=== PATIENT | male | born 1985 | race Caucasian/White ===

== ENCOUNTER 2018-01-12 18:45 | Observation (INO) | payer OTHER ==
--- NOTE | 2018-01-12 19:29 | ED ---
Chest Pain HPI - General Chief Complaint: Chest Pain Stated Complaint: Chest pain Time Seen by Provider: 01/12/18 19:00 Source: patient, RN notes reviewed Mode of arrival: ambulatory Limitations: no limitations - History of Present Illness Initial Comments: This is a 32-year-old male who presents today with complaints of left-sided chest pain a racing heart lightheadedness after he was chopping wood today. He states that sharp pain it was moderate in severity and went from his left chest down his left elbow. He did not pass out has no cough or shortness of breath at this time he does have a history of COPD and is still a smoker. He does state that he had an episode of syncope this past fall he did have a workup which included apparently an echocardiogram which showed a possible hole between left and right side of his heart. Additionally he was told he may need a pacemaker is his heart rate does drop into the 30s at night. He states he still has some sharp chest pain he also stills has palpitations. No fevers chills sweats. 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 He was in the [employer] and apparently was able to handle food And all the other stresses. MD Complaint: chest pain, other - Related Data Home Medications Medication Instructions Recorded Confirmed Unable To Assess [Unable to Assess] 01/12/18 01/12/18 Allergies Allergy/AdvReac Type Severity Reaction Status Date / Time morphine Allergy Swelling Verified 01/12/18 18:54 Review of Systems ROS Statement: Those systems with pertinent positive or pertinent negative responses have been documented in the HPI. ROS Other: All systems not noted in ROS Statement are negative. EKG Findings - EKG Results: EKG: interpreted by ERMD (EKG shows a sinus rhythm rate of 80 with frequent unifocal PVCs. Interval 144 QRS duration 106 QT since QTC of 44/465 rightward axis nonspecific anterior changes.) Past Medical History Past Medical History: No Reported History History of Any Multi-Drug Resistant Organisms: None Reported Past Surgical History: Appendectomy, Orthopedic Surgery, Tonsillectomy Additional Past Surgical History / Comment(s): left hip surgery, left shoulder, eye surgery Past Psychological History: No Psychological Hx Reported Smoking Status: Current every day smoker Past Alcohol Use History: None Reported Past Drug Use History: None Reported General Exam - General Exam Comments Initial Comments: This is a well-developed well-nourished awake alert oriented 3 male Limitations: no limitations General appearance: alert, in no apparent distress Head exam: Present: atraumatic, normocephalic, normal inspection Eye exam: Present: normal appearance, PERRL, EOMI. Absent: scleral icterus, conjunctival injection, periorbital swelling ENT exam: Present: normal exam, mucous membranes moist Neck exam: Present: normal inspection. Absent: tenderness, meningismus, lymphadenopathy Respiratory exam: Present: normal lung sounds bilaterally. Absent: respiratory distress, wheezes, rales, rhonchi, stridor Cardiovascular Exam: Present: bradycardia, irregular rhythm. Absent: systolic murmur, diastolic murmur, rubs, gallop, clicks GI/Abdominal exam: Present: soft, normal bowel sounds. Absent: distended, tenderness, guarding, rebound, rigid Extremities exam: Present: normal inspection, full ROM, normal capillary refill. Absent: tenderness, pedal edema, joint swelling, calf tenderness Back exam: Present: normal inspection Neurological exam: Present: alert, oriented X3, CN II-XII intact Psychiatric exam: Present: normal affect, normal mood Skin exam: Present: warm, dry, intact, normal color. Absent: rash Course Vital Signs 01/12/18 01/12/18 01/12/18 18:51 19:38 20:32 Temperature 98.0 F Pulse Rate 42 L 52 L 55 L Respiratory 18 18 18 Rate Blood Pressure 106/54 114/58 109/56 O2 Sat by Pulse 96 98 99 Oximetry Chest Pain MDM - MDM I did review the imaging and report no acute findings. Patient is resting comfortably he still has unifocal PVCs his heart rate has improved however. I did a long discussion with him and his family he will be admitted [facility] for evaluation of chest pain palpitations and multiple PVCs. He did also have a bradycardic episode Disposition Clinical Impression: Chest pain, Ventricular premature contractions, Palpitations Disposition: ADMITTED IP TO THIS HOSP Condition: Stable Referrals: [facility],Clinic [Primary Care Provider] - 1-2 days
--- NOTE | 2018-01-12 19:42 | XR ---
EXAMINATION TYPE: XR chest 2V DATE OF EXAM: 01/12/2018 COMPARISON: NONE HISTORY: Chest pain TECHNIQUE: Frontal and lateral views of the chest are obtained. FINDINGS: Heart and mediastinum are normal. Lungs are clear. Diaphragm is normal. There are chest le ads. Bony thorax is intact. IMPRESSION: Normal chest
[2018-01-12 20:00] LABS: Basophils # (A) 0.1 k/uL (0-0.2); Basophils % (A) 1 %; Eosinophils # (A) 0.4 k/uL (0-0.7); Eosinophils % (A) 4 %; HCT 43.2 % (39.0-53.0); HGB 14.5 gm/dL (13.0-17.5); Lymphocytes # (A) 3.4 k/uL (1.0-4.8); Lymphocytes % (A) 33 %; MCH 29.8 pg (25.0-35.0); MCHC 33.6 g/dL (31.0-37.0); MCV 88.5 fL (80.0-100.0); Mean Platelet Volume 8.2; Monocytes # (A) 0.6 k/uL (0-1.0); Monocytes % (A) 6 %; Neutrophils # (A) 5.5 k/uL (1.3-7.7); Neutrophils % (A) 54 %; Platelet Count 287 k/uL (150-450); RBC 4.88 m/uL (4.30-5.90); RDW 13.1 % (11.5-15.5); WBC 10.2 k/uL (3.8-10.6)
[2018-01-12 20:08] LABS: ALT 34 U/L (21-72); AST 21 U/L (17-59); Albumin 4.5 g/dL (3.5-5.0); Alkaline Phosphatase 46 U/L (38-126); Amylase 57 U/L (30-110); Anion Gap 11 mmol/L; Blood Urea Nitrogen 8 mg/dL (9-20); Calcium 9.7 mg/dL (8.4-10.2); Carbon Dioxide 26 mmol/L (22-30); Chloride 104 mmol/L (98-107); D-Dimer <0.17 mg/L FEU (<0.60); Glucose 88 mg/dL (74-99); Lipase 60 U/L (23-300); Magnesium 2.1 mg/dL (1.6-2.3); Potassium 4.2 mmol/L (3.5-5.1); Sodium 141 mmol/L (137-145); Total Bilirubin 0.2 mg/dL (0.2-1.3); Total Protein 7.1 g/dL (6.3-8.2)
[2018-01-12 20:12] LABS: Partial Thromboplastin Time 24.6 sec (22.0-30.0); Prothrombin Time 10.1 sec (9.0-12.0)
[2018-01-12 20:18] LABS: Creatine Kinase 133 U/L (55-170)
[2018-01-12 20:32] LABS: Creatine Kinase MB 0.5 ng/mL (0.0-2.4); Troponin I <0.012 ng/mL (0.000-0.034)
[2018-01-12] MEDS ORDERED: HEPARIN SODIUM,PORCINE 5,000 UNIT/ML 1 ML VIAL IV ONE (21:49)
[2018-01-12] MEDS ORDERED: NITROGLYCERIN SL TABS 0.4 MG TAB SUBLINGUAL PRN (21:49)
--- NOTE | 2018-01-12 21:49 | ED ---
Medical Decision Making - Medical Decision Making I did discuss the findings with the patient family his heart rate has normalized he will be admitted I did discuss the case with Dr. Hooper - Lab Data Result diagrams: 01/12/18 19:11 01/12/18 19:11 Lab Results 01/12/18 01/12/18 01/12/18 Range/Units 19:11 19:11 19:11 WBC 10.2 (3.8-10.6) k/uL RBC 4.88 (4.30-5.90) m/uL Hgb 14.5 (13.0-17.5) gm/dL Hct 43.2 (39.0-53.0) % MCV 88.5 (80.0-100.0) fL MCH 29.8 (25.0-35.0) pg MCHC 33.6 (31.0-37.0) g/dL RDW 13.1 (11.5-15.5) % Plt Count 287 (150-450) k/uL Neutrophils % 54 % Lymphocytes % 33 % Monocytes % 6 % Eosinophils % 4 % Basophils % 1 % Neutrophils # 5.5 (1.3-7.7) k/uL Lymphocytes # 3.4 (1.0-4.8) k/uL Monocytes # 0.6 (0-1.0) k/uL Eosinophils # 0.4 (0-0.7) k/uL Basophils # 0.1 (0-0.2) k/uL PT (9.0-12.0) sec INR (<1.2) APTT (22.0-30.0) sec D-Dimer (<0.60) mg/L FEU Sodium 141 (137-145) mmol/L Potassium 4.2 (3.5-5.1) mmol/L Chloride 104 (98-107) mmol/L Carbon Dioxide 26 (22-30) mmol/L Anion Gap 11 mmol/L BUN 8 L (9-20) mg/dL Creatinine 0.80 (0.66-1.25) mg/dL Est GFR (MDRD) Af Amer >60 (>60 ml/min/1.73 sqM) Est GFR (MDRD) Non-Af >60 (>60 ml/min/1.73 sqM) Glucose 88 (74-99) mg/dL Calcium 9.7 (8.4-10.2) mg/dL Magnesium 2.1 (1.6-2.3) mg/dL Total Bilirubin 0.2 (0.2-1.3) mg/dL AST 21 (17-59) U/L ALT 34 (21-72) U/L Alkaline Phosphatase 46 (38-126) U/L Total Creatine Kinase 133 (55-170) U/L CK-MB (CK-2) 0.5 (0.0-2.4) ng/mL CK-MB (CK-2) Rel Index 0.4 Troponin I <0.012 (0.000-0.034) ng/mL NT-Pro-B Natriuret Pep pg/mL Total Protein 7.1 (6.3-8.2) g/dL Albumin 4.5 (3.5-5.0) g/dL Amylase 57 (30-110) U/L Lipase 60 (23-300) U/L TSH 1.010 (0.465-4.680) mIU/L 01/12/18 01/12/18 Range/Units 19:11 19:11 WBC (3.8-10.6) k/uL RBC (4.30-5.90) m/uL Hgb (13.0-17.5) gm/dL Hct (39.0-53.0) % MCV (80.0-100.0) fL MCH (25.0-35.0) pg MCHC (31.0-37.0) g/dL RDW (11.5-15.5) % Plt Count (150-450) k/uL Neutrophils % % Lymphocytes % % Monocytes % % Eosinophils % % Basophils % % Neutrophils # (1.3-7.7) k/uL Lymphocytes # (1.0-4.8) k/uL Monocytes # (0-1.0) k/uL Eosinophils # (0-0.7) k/uL Basophils # (0-0.2) k/uL PT 10.1 (9.0-12.0) sec INR 1.0 (<1.2) APTT 24.6 (22.0-30.0) sec D-Dimer <0.17 (<0.60) mg/L FEU Sodium (137-145) mmol/L Potassium (3.5-5.1) mmol/L Chloride (98-107) mmol/L Carbon Dioxide (22-30) mmol/L Anion Gap mmol/L BUN (9-20) mg/dL Creatinine (0.66-1.25) mg/dL Est GFR (MDRD) Af Amer (>60 ml/min/1.73 sqM) Est GFR (MDRD) Non-Af (>60 ml/min/1.73 sqM) Glucose (74-99) mg/dL Calcium (8.4-10.2) mg/dL Magnesium (1.6-2.3) mg/dL Total Bilirubin (0.2-1.3) mg/dL AST (17-59) U/L ALT (21-72) U/L Alkaline Phosphatase (38-126) U/L Total Creatine Kinase (55-170) U/L CK-MB (CK-2) (0.0-2.4) ng/mL CK-MB (CK-2) Rel Index Troponin I (0.000-0.034) ng/mL NT-Pro-B Natriuret Pep 69 pg/mL Total Protein (6.3-8.2) g/dL Albumin (3.5-5.0) g/dL Amylase (30-110) U/L Lipase (23-300) U/L TSH (0.465-4.680) mIU/L - Radiology Data Radiology results: report reviewed (I did review the imaging and report no acute findings), image reviewed Disposition Clinical Impression: Chest pain, Ventricular premature contractions, Palpitations, Bradycardia Disposition: ADMITTED IP TO THIS [facility] Condition: Stable Referrals: [facility],Clinic [Primary Care Provider] - 1-2 days
[2018-01-12] MEDS ORDERED: ASPIRIN 81 MG PO STA (21:52)
[2018-01-12] MEDS ORDERED: HEPARIN SOD,PORK IN 0.45% NACL 25,000 UNIT in 0.45% NACL 1 500ML.BAG IV SCH (22:00)
[2018-01-12] MEDS: SODIUM CHLORIDE 0.9% 1,000 ML IV SCH (22:31)
[2018-01-12 23:27] VITALS: BMI 20.2
[2018-01-13] MEDS ORDERED: ALPRAZolam 0.25 MG TAB PO PRN (00:05)
[2018-01-13] MEDS ORDERED: TEMAZEPAM 15 MG CAP PO PRN (00:05)
[2018-01-13 01:50] LABS: Creatine Kinase 113 U/L (55-170)
[2018-01-13 02:03] LABS: Creatine Kinase MB 0.3 ng/mL (0.0-2.4); Troponin I <0.012 ng/mL (0.000-0.034)
[2018-01-13 03:03] LABS: Cholesterol 143 mg/dL (<200); HDL Cholesterol 44 mg/dL (40-60); LDL Cholesterol,Calculated 91 mg/dL (0-99); Triglycerides 39 mg/dL (<150)
[2018-01-13] MEDS: NITROGLYCERIN OINT 1 INCH/GM PACKET TOPICAL SCH ×2 (03:42→06:56)
--- NOTE | 2018-01-13 05:56 | HP ---
HISTORY AND PHYSICAL DATE OF SERVICE: 01/12/2018 Chief complaints are chest pain, palpitation and heart racing. HISTORY OF PRESENT ILLNESS: This 32-year-old gentleman with a past medical history of multiple cardiac symptoms followed by the [facility] in [place] because of the palpitations and bradycardia presented with chest pain and palpitation to [facility]. In the [facility] in [place], the patient was scheduled for a cardiac MRI for apparent evaluation for cardiac arrhythmia with bradycardia and the possibility of Brugada syndrome was also considered. No records are available at this time. Currently the patient is complaining of feeling of palpitation and the patient complained of significant weakness and patient came to [facility] admitted for further evaluation and treatment. The patient apparently had a history of COPD, otherwise, the patient also had an episode of syncope. The heart rate was in sometimes in the 30s according to him. EKG done in the ER showed normal sinus rhythm with PVCs. Otherwise there is no history of fever , rigors or chills. There is no history of headache, loss of consciousness, seizures. PAST MEDICAL HISTORY: History of appendectomy, DJD, history of and cardiac arrhythmia evaluation as mentioned earlier. MEDICATIONS: Medications are none. ALLERGIES: MORPHINE. FAMILY HISTORY: No history of heart disease or strokes in the family. SOCIAL HISTORY: History of smoking. No history of alcohol intake. REVIEW OF SYSTEMS: ENT: No diminished hearing or diminished vision. CARDIOVASCULAR: As mentioned earlier. RESPIRATORY: As mentioned earlier. GI: No nausea or vomiting. : No dysuria. NERVOUS SYSTEM: No numbness or weakness. ALLERGY/IMMUNOLOGY: No history of asthma. MUSCULOSKELETAL: As mentioned earlier. HEMATOLOGY/ONCOLOGY: No history of anemia. ENDOCRINE: No history of diabetes or hypothyroidism. CONSTITUTIONAL: As mentioned earlier. DERMATOLOGY: Negative. RHEUMATOLOGY: Negative. PSYCHIATRY: As mentioned earlier. PHYSICAL EXAMINATION: The patient is alert and oriented x3. Pulse is 56, blood pressure 109/55, respiration 12, temperature 97.6, pulse ox 99% on 2 L. HEENT: Conjunctivae normal. Oral mucosa moist. Neck is no jugular venous distention. No carotid bruit. No lymph node enlargement. CARDIOVASCULAR: S1 and S2 muffled. No S3 or S4. RESPIRATORY: Breath sounds diminished at the bases. No rhonchi. No crackles. ABDOMEN: Soft, nontender. No mass palpable. LEGS: No edema, no swelling. NERVOUS SYSTEM: Higher functions as mentioned earlier. Moves all 4 limbs. No focal deficits. LYMPHATICS: No lymphadenopathy of the neck, axillae or groin. SKIN: No ulcer, rash or bleeding. LABS: CBC, CMP within normal. TSH is normal. ASSESSMENT: 1. Cardiac arrhythmia for evaluation. 2. History of syncope under cardiac workup. 3. Premature ventricular contractions. 4. History of chronic obstructive pulmonary disease. 5. Degenerative joint disease. 6. Tonsillectomy. 7. Continued nicotine dependence. RECOMMENDATIONS AND DISCUSSION: This 32-year-old gentleman who presented with multiple complex medical issues, will monitor the patient closely. Continue the current medications, continue symptomatic treatment. Otherwise at this time I recommend monitor closely. Otherwise, cardiology evaluation, telemetry, monitor blood sugars closely. Smoking cessation has been recommended. Otherwise, prognosis guarded because of multiple complex medical issues. Further recommendations to follow. MMODL / IJN: [id number] / MTDD
[2018-01-13 07:21] LABS: Creatine Kinase 105 U/L (55-170)
[2018-01-13 07:34] LABS: Creatine Kinase MB 0.3 ng/mL (0.0-2.4); Troponin I <0.012 ng/mL (0.000-0.034)
--- NOTE | 2018-01-13 09:01 | P.CRDCN ---
History of Present Illness Consult date: 01/13/18 Requesting physician: Pita Hooper Consult reason: chest pain Chief complaint: Heart racing and near syncope History of present illness: This is a 32-year-old gentleman with history of nicotine dependence, cardiac risk factors are negative for hypertension, no diabetes, no hyperlipidemia, rare EtOH, minimal caffeine use. He presents to the hospital with symptoms of heart racing and near syncope. Patient then states it was very hard to lift his arms or legs because they felt extremely heavy. According to the patient, he had been out chopping wood, he states that he felt his heart race extremely fast, he then became extremely dizzy and lightheaded, felt some sharp pains in his chest. He states that he sat down, and did not pass out. Approximately one year ago the patient states he had very similar symptoms, and had a syncopal episode. Patient apparently was wearing a monitor at that time, because he had been experiencing symptoms of palpitations, however when he fell he dislodge the monitor, he states that there were no rhythms documented. EKG on arrival here showed a normal sinus rhythm with frequent PVCs. Chest x-ray normal. Blood pressure on arrival 106/54, heart rate in the 40s to 50s, 96% on room air. CBC normal. D-dimer 0.17, sodium 141 , potassium 4.2, BUN 8, creatinine 0.8. Troponins are negative 3. TSH 1.01. At the time of my examination this morning, patient denies any palpitations, no chest discomfort. No dizziness or lightheadedness. Past Medical History Past Medical History: No Reported History History of Any Multi-Drug Resistant Organisms: None Reported Past Surgical History: Appendectomy, Orthopedic Surgery, Tonsillectomy Additional Past Surgical History / Comment(s): left hip surgery, left shoulder, eye surgery Past Psychological History: No Psychological Hx Reported Smoking Status: Current every day smoker Past Alcohol Use History: None Reported Past Drug Use History: None Reported Medications and Allergies Home Medications Medication Instructions Recorded Confirmed Type Unable To Assess [Unable to Assess] 01/12/18 01/12/18 History Allergies Allergy/AdvReac Type Severity Reaction Status Date / Time morphine Allergy Swelling Verified 01/12/18 18:54 Physical Exam Vitals: Vital Signs Temp Pulse Pulse Resp BP BP Pulse Ox 01/13/18 04:00 56 L 12 01/13/18 00:00 97.8 F 56 L 12 116/53 98 01/12/18 22:54 56 L 12 109/55 100 01/12/18 22:36 97.6 F 65 18 108/59 99 01/12/18 20:32 55 L 18 109/56 99 01/12/18 19:38 52 L 18 114/58 98 01/12/18 18:51 98.0 F 42 L 18 106/54 96 Intake and Output 01/12/18 01/13/18 01/13/18 22:59 06:59 14:59 Intake Total 333.263 Balance 333.263 Intake: Intake, IV Titration 83.263 Amount Heparin Sod,Pork in 0.45% 83.263 NaCl 25,000 unit In 0.45 % NaCl 1 500ml.bag @ 12 UNITS/KG/HR 16.22 mls/hr IV .Q24H [facility] Rx#: [id number] Oral 250 Other: Weight 67.585 kg 65.7 kg PHYSICAL EXAMINATION: HEENT: Head is atraumatic, normocephalic. Pupils equal, round. Neck is supple. There is no elevated jugular venous pressure. HEART EXAMINATION: Heart S1, S2 normal. No murmur or gallop heard. CHEST EXAMINATION: Lungs are clear to auscultation and precussion. No chest wall tenderness is noted on palpation or with deep breathing. ABDOMEN: Soft, nontender. Bowel sounds are heard. No organomegaly noted. EXTREMITIES: 2+ peripheral pulses with no evidence of peripheral edema and no calf tenderness noted. NEUROLOGIC patient is awake, alert and oriented -3. . Results 01/12/18 19:11 01/12/18 19:11 Cardiac Enzymes 01/12/18 01/12/18 01/13/18 Range/Units 19:11 19:11 01:21 AST 21 (17-59) U/L CK-MB (CK-2) 0.5 0.3 (0.0-2.4) ng/mL Troponin I <0.012 <0.012 (0.000-0.034) ng/mL 01/13/18 Range/Units 06:22 AST (17-59) U/L CK-MB (CK-2) 0.3 (0.0-2.4) ng/mL Troponin I <0.012 (0.000-0.034) ng/mL Coagulation 18 01/13/18 Range/Units 19:11 02:20 PT 10.1 (9.0-12.0) sec APTT 24.6 45.7 H (22.0-30.0) sec Lipids 01/13/18 Range/Units 02:20 Triglycerides 39 (<150) mg/dL Cholesterol 143 (<200) mg/dL HDL Cholesterol 44 (40-60) mg/dL CBC 01/12/18 Range/Units 19:11 WBC 10.2 (3.8-10.6) k/uL RBC 4.88 (4.30-5.90) m/uL Hgb 14.5 (13.0-17.5) gm/dL Hct 43.2 (39.0-53.0) % Plt Count 287 (150-450) k/uL Comprehensive Metabolic Panel 01/12/18 Range/Units 19:11 Sodium 141 (137-145) mmol/L Potassium 4.2 (3.5-5.1) mmol/L Chloride 104 (98-107) mmol/L Carbon Dioxide 26 (22-30) mmol/L BUN 8 L (9-20) mg/dL Creatinine 0.80 (0.66-1.25) mg/dL Glucose 88 (74-99) mg/dL Calcium 9.7 (8.4-10.2) mg/dL AST 21 (17-59) U/L ALT 34 (21-72) U/L Alkaline Phosphatase 46 (38-126) U/L Total Protein 7.1 (6.3-8.2) g/dL Albumin 4.5 (3.5-5.0) g/dL Current Medications Generic Name Dose Route Start Last Admin Trade Name Freq PRN Reason Stop Dose Admin Alprazolam 0.25 mg 01/13/18 00:05 Xanax PO TID PRN Anxiety Aspirin 325 mg 01/13/18 09:00 Aspirin PO DAILY JORGE Heparin Sodium/Sodium Chloride 500 mls @ 16.22 mls/hr 01/12/18 22:00 03:41 25,000 unit/ Sodium Chloride IV 14 units/kg/hr .Q24H JORGE 18.92 mls/hr Protocol Titration 12 UNITS/KG/HR Sodium Chloride 1,000 mls @ 100 mls/hr 01/12/18 22:00 01/12/18 22:31 Saline 0.9% IV 100 mls/hr .Q10H JORGE Administration Nicotine 1 patch 01/13/18 09:00 Habitrol 14mg/24hr Patch TRANSDERM DAILY [facility] Nitroglycerin 1 inch 01/13/18 00:00 01/13/18 06:56 Nitro-Bid Oint TOPICAL Not Given Q6HR [facility] Nitroglycerin 0.4 mg 01/12/18 21:49 Nitrostat SUBLINGUAL Q5M PRN Chest Pain Temazepam 15 mg 01/13/18 00:05 Restoril PO HS PRN Insomnia Intake and Output 01/12/18 01/13/18 01/13/18 22:59 06:59 14:59 Intake Total 333.263 Balance 333.263 Intake: Intake, IV Titration 83.263 Amount Heparin Sod,Pork in 0.45% 83.263 NaCl 25,000 unit In 0.45 % NaCl 1 500ml.bag @ 12 UNITS/KG/HR 16.22 mls/hr IV .Q24H JORGE Rx#: [id number] Oral 250 Other: Weight 67.585 kg 65.7 kg 01/12/18 19:11 01/12/18 19:11 EKG Interpretations (text) EKG shows a sinus bradycardia with frequent PVCs Assessment and Plan Plan: Assessment and plan #1 symptoms of heart racing with associated dizziness and lightheadedness. History of prior syncopal episodes. EKG shows a sinus bradycardia with frequent PVCs. Blood pressure 106/54. TSH normal #2 atypical chest discomfort, troponins negative 3. EKG shows a sinus bradycardia with frequent PVCs, no acute changes noted. D-dimer negative. #3 nicotine dependence #4 cardiac risk factors negative for hypertension, no diabetes, no hyperlipidemia Plan We will obtain an echocardiogram with Doppler study. We will also discontinue the IV heparin. Discontinue Nitropaste. Patient states he has worn a monitor in the past, he was living in [place] at that time. Continue to monitor for any tachycardia or bradycardia arrhythmias. Check orthostatic pressure and heart rate every shift. Further recommendations to follow DNP note has been reviewed, I agree with a documented findings and plan of care. Patient was seen and examined.
--- NOTE | 2018-01-13 10:52 | ECHOF ---
Referral Reason:chest pain MEASUREMENTS -------- HEIGHT: 182.9 cm WEIGHT: 65.3 kg BP: 116/53 RVIDd: 3.0 cm (< 3.3) IVSd: 1.0 cm (0.6 - 1.1) LVIDd: 5.0 cm (3.9 - 5.3) LVPWd: 1.1 cm (0.6 - 1.1) IVSs: 1.3 cm LVIDs: 4.2 cm LVPWs: 1.4 cm LA Diam: 3.2 cm (2.7 - 3.8) Ao Diam: 3.7 cm (2.0 - 3.7) AV Cusp: 2.8 cm (1.5 - 2.6) MV EXCURSION: 21.714 mm (> 18.000) MV EF SLOPE: 145 mm/s (70 - 150) EPSS: 0.9 cm MV E Remington: 0.72 m/s MV DecT: 249 ms MV A Remington: 0.53 m/s MV E/A Ratio: 1.37 RAP: 5.00 mmHg RVSP: 22.27 mmHg FINDINGS -------- Resting bradycardia (HR<60bpm). This was a technically good study. The left ventricular size is normal. Left ventricular wall thickness is normal. Overall left vent ricular systolic function is low-normal with, an EF between 50 - 55 %. The right ventricle is normal in size. Normal LA size by volume 22+/-6 ml/m2. The right atrium is normal in size. The aortic valve is trileaflet and appears structurally normal. There is trace to mild mitral regurgitation. Mild tricuspid regurgitation present. Right ventricular systolic pressure is normal at < 35 mmHg. Trace/mild (physiologic) pulmonic regurgitation. The aortic root is dilated measuring 3.7cm. Normal inferior vena cava with normal inspiratory collapse consistent with estimated right atrial pre ssure of 5 mmHg. The inferior vena cava is mildly dilated. There is no pericardial effusion. CONCLUSIONS -------- 1. Resting bradycardia (HR<60bpm). 2. This was a technically good study. 3. The left ventricular size is normal. 4. Left ventricular wall thickness is normal. 5. Overall left ventricular systolic function is low-normal with, an EF between 50 - 55 %. 6. The right ventricle is normal in size. 7. Normal LA size by volume 22+/-6 ml/m2. 8. The right atrium is normal in size. 9. The aortic valve is trileaflet and appears structurally normal. 10. There is trace to mild mitral regurgitation. 11. Mild tricuspid regurgitation present. 12. Right ventricular systolic pressure is normal at < 35 mmHg. 13. Trace/mild (physiologic) pulmonic regurgitation. 14. The aortic root is dilated measuring 3.7cm. 15. Normal inferior vena cava with normal inspiratory collapse consistent with estimated right atrial pressure of 5 mmHg. 16. The inferior vena cava is mildly dilated. 17. There is no pericardial effusion. CREDIT UNION FIELD EXAMINER: Qing Brooks RDCS
[2018-01-13 11:43] LABS: Appearance,Urine Clear (Clear); Bilirubin,Urine Negative (Negative); Blood,Urine Negative (Negative); Color,Urine Light Yellow; Glucose,Urine (UA) Negative (Negative); Ketones,Urine Negative (Negative); Leukocyte Esterase,Urine Negative (Negative); Nitrite,Urine Negative (Negative); Protein,Urine Negative (Negative); Specific Gravity,Urine 1.007 (1.001-1.035); Urobilinogen,Urine <2.0 mg/dL (<2.0)
[2018-01-13 11:57] LABS: Amphetamine Screen,Urine Not Detected (NotDetected); Barbiturate Screen,Urine Not Detected (NotDetected); Benzodiazepines Screen,Urine Not Detected (NotDetected); Cocaine Screen,Urine Not Detected (NotDetected); Methadone Screen, Urine Not Detected (NotDetected); Opiate Screen,Urine Not Detected (NotDetected); Oxycodone Screen, Urine Not Detected (NotDetected); Phencyclidine Screen,Urine Not Detected (NotDetected); Tricyclic Antidepressant,Urine Not Detected (NotDetected); Urn Cannabinoid Scrn Not Detected (NotDetected)
--- NOTE | 2018-01-13 12:06 | EST ---
EXERCISE STRESS AGE: 32 SEX: M HT: 6" WT: 144 PROTOCOL: Reuben Stress Test STAGE: IV DURATION OF EXERCISE: 13/49 HEART RATE REST: 66 BLOOD PRESSURE REST: 114/62 MAXIMUM HEART RATE ACHIEVED: 139 MAXIMUM BLOOD PRESSURE: 106/57 85% MPHR: 160 100% MPHR: 185 METS: 14.3 INDICATIONS: Chest pain. CLINICAL INFORMATION: Patient was exercised for total tear of 14 minutes. A peak heart rate of 139 was achieved which is 73% of the age-predicted heart rate. Maximum blood pressure of 106/57 mmHg was noted. Resting EKG shows normal sinus rhythm with normal LA interval and QRS duration and normal ST-T waves. Occasional PVCs are noted. During exercise, intermittent PVCs were noted. During the early part of exercise and in the recovery period, intermittent PVCs were noted. No complex arrhythmias are noted. FINAL IMPRESSION: 1. This exercise EKG is inconclusive to diagnose ischemia because only 73% of the age- predicted heart rate was achieved; however, patient's exercise tolerance is excellent and no ST-segment changes were noted. 2. Intermittent premature ventricular contractions were noted during exercise. MMODL / IJN: [id number] /
[2018-01-13] MEDS: NICOTINE 14MG/24HR PATCH TRANSDERM SCH (16:42)
[2018-01-13] MEDS: ASPIRIN 325 MG TAB PO SCH (16:42)
--- NOTE | 2018-01-13 18:26 | PN ---
PROGRESS NOTE DATE OF SERVICE: 01/13/2018 This 32-year-old gentleman who was admitted with cardiac arrhythmia also had chest pain. Patient had a stress test which was inconclusive. No fever. No cough. On exam, alert and oriented x3. Pulse 54, blood pressure 120/69, respiration 14, temperature 97.3, pulse ox 98% on room air. HEENT: Conjunctivae normal. NECK: No jugular venous distention. CARDIOVASCULAR SYSTEM: S1, S2 muffled. RESPIRATORY SYSTEM: Breath sounds diminished at the bases. No rhonchi. No crackles. ABDOMEN: Soft, non-tender. LEGS: No edema. No swelling. NERVOUS SYSTEM: No focal deficit. LABS: Troponins are negative. Other labs are noted. ASSESSMENT: 1. Cardiac arrhythmia for evaluation. 2. Chest pain with negative stress test. 3. History of syncope with cardiac workup. 4. Premature ventricular contractions. 5. History of chronic obstructive pulmonary disease. 6. Degenerative joint disease. 7. Tonsillectomy. 8. Continued nicotine dependence. RECOMMENDATION AND DISCUSSION: I recommend to continue current medication, continue symptomatic treatment. Otherwise at this time I would recommend closely following with Cardiology. Continue the rest of the medications. Guarded prognosis. Further recommendations to follow. Patient had a workup pending in [facility]. MMODL / IJN: [id number] /
[2018-01-14] MEDS: SODIUM CHLORIDE 0.9% 1,000 ML IV SCH ×2 (06:34→06:37)
[2018-01-14] MEDS: ASPIRIN 325 MG TAB PO SCH (07:52)
[2018-01-14] MEDS: NICOTINE 14MG/24HR PATCH TRANSDERM SCH (07:52)
[2018-01-14 10:23] VITALS: RESP 20
[2018-01-14 11:40] VITALS: PULSE 39; TEMP 97.7
[2018-01-14 11:41] VITALS: BP 96/53
--- NOTE | 2018-01-14 18:55 | PN ---
PROGRESS NOTE This young man came in with a near syncopal episode. Also had ventricular ectopy. Yesterday he walked on a treadmill for 14 minutes. Heart rate did not reach 85%, but regular stress test was unremarkable. Ventricular ectopy was at rest and on recovery, but with exercise, this seemed to improve quite a bit. I am recommending that he should be discharged on event monitor for 14 days. Vital signs are stable. There are no orthostatic changes. S1-S2 heard normally. Lungs are clear. Abdomen and lower extremity exam unchanged. I have advised the patient regarding smoking cessation and to follow up with me in 2 weeks after the event monitor. MMODL / IJN: [id number] /
--- NOTE | 2018-01-14 20:19 | DS ---
DISCHARGE SUMMARY DATE OF SERVICE: 01/14/2018. FINAL DIAGNOSES: 1. Chest pain, possible musculoskeletal, negative stress test. 2. Cardiac arrhythmia for evaluation with bradycardia and premature ventricular contractions. 3. History of syncope with cardiac workup in [place]. 4. Premature ventricular contractions. 5. History of chronic obstructive pulmonary disease. 6. Degenerative joint disease. 7. Tonsillectomy. 8. Continued ongoing nicotine dependence. 9. The aortic root is found to be 3.7. Recommend outpatient followup. DISCHARGE DISPOSITION: The patient will be discharged in stable condition with guarded prognosis, okayed by Cardiology. HISTORY OF PRESENT ILLNESS: This 32-year-old gentleman with a past medical history of multiple medical problems was admitted with cardiac arrhythmia as well as chest pain. Stress test was negative. Cardiology saw the patient. A 2D echo was also noted and the patient will be discharged in stable condition with guarded prognosis. EXAM: Vitals are stable. CARDIOVASCULAR: S1, S2 muffled. ABDOMEN: Soft. NERVOUS SYSTEM: No focal deficit. DISCHARGE ADVICE AND MEDICATIONS: 1. Diet is cardiac. 2. Activity limited until followup. 3. Follow up with the [facility] in 2-3 days. 4. Follow with a grain wafer machine operator. 5. Medications will be Zyrtec 10 mg p.o. daily. 6. Naprosyn 500 mg b.i.d. p.r.n. 7. Habitrol 14 daily. 8. Ranitidine 150 mg p.o. b.i.d. 9. Ambien 10 mg q.h.s. p.r.n. MMODL / IJN: [id number] /
== END 2018-01-14 16:11 | disposition home or self-care (01) ==
LOC: EC 18:45 → 6SEL 21:49
PROVIDERS: ADMIT Internal Medicine; ATTEND Internal Medicine
DX: R07.89 Other chest pain (principal); I49.3 Ventricular premature depolarization; J44.9 Chronic obstructive pulmonary disease, unspecified; M19.90 Unspecified osteoarthritis, unspecified site; F17.200 Nicotine dependence, unspecified, uncomplicated; Z88.5 Allergy status to narcotic agent; Z90.89 Acquired absence of other organs
CPT/HCPCS: 99285 ×2; 96365 ×2; 96376 ×2; 96366 ×2; 36415; 93005; 93017; 93306; 85379; 83880; 80061; 80053; 84443; 82150; 82550 ×2; 82553 ×2; 83690; 83735; 84484 ×2; 85025; 85610; 85730 ×2; 81003; 80306; 71046; G0378 ×3; S4990 ×2; J1644 ×2

== ENCOUNTER 2018-01-30 22:16 | Observation (INO) | payer OTHER ==
[2018-01-30] MEDS ORDERED: SODIUM CHLORIDE 0.9% 1,000 ML IV ONE (22:30)
[2018-01-30 23:04] LABS: Basophils # (A) 0.1 k/uL (0-0.2); Basophils % (A) 1 %; Eosinophils # (A) 0.3 k/uL (0-0.7); Eosinophils % (A) 5 %; HCT 40.1 % (39.0-53.0); HGB 13.2 gm/dL (13.0-17.5); Lymphocytes # (A) 2.8 k/uL (1.0-4.8); Lymphocytes % (A) 38 %; MCH 28.9 pg (25.0-35.0); MCHC 32.9 g/dL (31.0-37.0); MCV 87.7 fL (80.0-100.0); Mean Platelet Volume 8.4; Monocytes # (A) 0.4 k/uL (0-1.0); Monocytes % (A) 6 %; Neutrophils # (A) 3.6 k/uL (1.3-7.7); Neutrophils % (A) 48 %; Platelet Count 248 k/uL (150-450); RBC 4.57 m/uL (4.30-5.90); RDW 13.5 % (11.5-15.5); WBC 7.4 k/uL (3.8-10.6)
--- NOTE | 2018-01-30 23:05 | XR ---
EXAMINATION TYPE: XR chest 2V DATE OF EXAM: 01/30/2018 COMPARISON: 01/12/2018 HISTORY: Chest pain TECHNIQUE: Frontal and lateral views of the chest are obtained. FINDINGS: Heart and mediastinum are within normal limits. Lungs are clear. Costophrenic angles are c lear. There are chest leads. Bony thorax is intact. IMPRESSION: Normal chest. No change.
--- NOTE | 2018-01-30 23:08 | ED ---
General Adult HPI - General Chief complaint: Chest Pain Stated complaint: Palpitations Time Seen by Provider: 01/30/18 22:21 Source: patient, EMS Mode of arrival: EMS Limitations: physical limitation - History of Present Illness Initial comments: This is a 32-year-old male with no past medical history who presents emergency department for lightheadedness, chest burning, mild shortness of breath, and generalized malaise. The patient states that the symptoms started suddenly this evening. He states that they have improved however is having persistent lightheadedness and mild chest discomfort. The patient was recently seen in the hospital for similar complaints. He is admitted for bradycardia and multiple PVCs. He had a stress echo done that was unremarkable at that time. There is discussion about possibly placing a pacemaker due to the patient's symptoms however [facility]. He denies any new medications. Unclear family history because he is adopted. Denies any syncope however states he got very weak and fell back into the chair earlier today. Denies any other acute complaints. - Related Data Home Medications Medication Instructions Recorded Confirmed Cetirizine HCl [Zyrtec] 10 mg PO DAILY 01/13/18 01/30/18 Naproxen 500 mg PO BID PRN 01/13/18 01/30/18 Ranitidine HCl 150 mg PO BID PRN 01/13/18 01/30/18 Zolpidem [Ambien] 10 mg PO HS PRN 01/13/18 01/30/18 Previous Rx's Medication Instructions Recorded Nicotine 14Mg/24Hr Patch [Habitrol] 1 patch TRANSDERM DAILY #30 patch 01/13/18 Allergies Allergy/AdvReac Type Severity Reaction Status Date / Time morphine Allergy Swelling Verified 01/30/18 22:37 Review of Systems ROS Statement: Those systems with pertinent positive or pertinent negative responses have been documented in the HPI. ROS Other: All systems not noted in ROS Statement are negative. Past Medical History Past Medical History: No Reported History Additional Past Medical History / Comment(s): undiagnosed heart issues, pvc's History of Any Multi-Drug Resistant Organisms: None Reported Past Surgical History: Appendectomy, Orthopedic Surgery, Tonsillectomy Additional Past Surgical History / Comment(s): left hip surgery, left shoulder, eye surgery Past Psychological History: No Psychological Hx Reported Smoking Status: Current every day smoker Past Alcohol Use History: Rare Past Drug Use History: None Reported General Exam - General Exam Comments Initial Comments: Constitutional: Awake alert Appears comfortable Head: Normocephalic atraumatic Eyes: no conjunctival injection No scleral icterus EOMI Neck: No JVD Supple Heart: Rate is a regular and bradycardic normal S1-S2 no murmurs Lungs: Clear to auscultation bilaterally No wheezing No rales Abdomen: Soft nondistended nontender Extremities: Non edematous DP pulses intact Radial pulses intact Neuro: A&Ox3 No focal neurologic deficits Psych: Appropriate mood and affect Limitations: physical limitation Course Vital Signs 01/30/18 22:18 Temperature 97.9 F Pulse Rate 44 L Respiratory 16 Rate Blood Pressure 124/64 O2 Sat by Pulse 98 Oximetry EKG Findings - EKG Comments: EKG Findings:: EKG is showing normal sinus rhythm at a rate of 75. There is no abnormal ST segment changes or T-wave inversions. QTC is 439. Other intervals are normal. There is multiple PVCs. Medical Decision Making - Medical Decision Making Is a 32-year-old male presented for palpitations, lightheadedness, and weakness. On arrival the patient was in the 30s to 40s on the monitor. He stated he felt very lightheaded at that time. EKG was done that showed sinus rhythm with multiple PVCs however heart rate had improved. The patient states he's had minimal improvement in his symptoms. Labs were reviewed and unremarkable. The patient is supposed to be seen by gas engine operator generators at the [facility] in [place] however does not have an appointment until the . The patient states that he feels very unsteady and very uncomfortable being at home and is scared that his heart rate is going to dip down more. I did call the [facility] to see if they had any available beds to be transferred over there tonight however they do not. Due to his symptoms and severe bradycardia on arrival and going to keep him in the hospital for monitoring. No intervention was performed at this time however if the patient is a persistent symptoms he may require further treatment. Patient will be admitted to [facility] - Lab Data Result diagrams: 01/30/18 22:53 01/30/18 22:53 Lab Results 01/30/18 01/30/18 01/30/18 Range/Units 22:53 22:53 22:53 WBC 7.4 (3.8-10.6) k/uL RBC 4.57 (4.30-5.90) m/uL Hgb 13.2 (13.0-17.5) gm/dL Hct 40.1 (39.0-53.0) % MCV 87.7 (80.0-100.0) fL MCH 28.9 (25.0-35.0) pg MCHC 32.9 (31.0-37.0) g/dL RDW 13.5 (11.5-15.5) % Plt Count 248 (150-450) k/uL Neutrophils % 48 % Lymphocytes % 38 % Monocytes % 6 % Eosinophils % 5 % Basophils % 1 % Neutrophils # 3.6 (1.3-7.7) k/uL Lymphocytes # 2.8 (1.0-4.8) k/uL Monocytes # 0.4 (0-1.0) k/uL Eosinophils # 0.3 (0-0.7) k/uL Basophils # 0.1 (0-0.2) k/uL PT (9.0-12.0) sec INR (<1.2) APTT (22.0-30.0) sec Sodium 140 (137-145) mmol/L Potassium 4.0 (3.5-5.1) mmol/L Chloride 107 (98-107) mmol/L Carbon Dioxide 26 (22-30) mmol/L Anion Gap 7 mmol/L BUN 10 (9-20) mg/dL Creatinine 0.70 (0.66-1.25) mg/dL Est GFR (CKD-EPI)AfAm >90 (>60 ml/min/1.73 sqM) Est GFR (CKD-EPI)NonAf >90 (>60 ml/min/1.73 sqM) Glucose 101 H (74-99) mg/dL Calcium 9.5 (8.4-10.2) mg/dL Magnesium 2.0 (1.6-2.3) mg/dL Total Bilirubin 0.3 (0.2-1.3) mg/dL AST 17 (17-59) U/L ALT 25 (21-72) U/L Alkaline Phosphatase 34 L (38-126) U/L CK-MB (CK-2) <0.2 (0.0-2.4) ng/mL Troponin I <0.012 (0.000-0.034) ng/mL Total Protein 6.4 (6.3-8.2) g/dL Albumin 4.0 (3.5-5.0) g/dL TSH 0.960 (0.465-4.680) mIU/L 01/30/18 Range/Units 22:53 WBC (3.8-10.6) k/uL RBC (4.30-5.90) m/uL Hgb (13.0-17.5) gm/dL Hct (39.0-53.0) % MCV (80.0-100.0) fL MCH (25.0-35.0) pg MCHC (31.0-37.0) g/dL RDW (11.5-15.5) % Plt Count (150-450) k/uL Neutrophils % % Lymphocytes % % Monocytes % % Eosinophils % % Basophils % % Neutrophils # (1.3-7.7) k/uL Lymphocytes # (1.0-4.8) k/uL Monocytes # (0-1.0) k/uL Eosinophils # (0-0.7) k/uL Basophils # (0-0.2) k/uL PT 10.5 (9.0-12.0) sec INR 1.1 (<1.2) APTT 25.5 (22.0-30.0) sec Sodium (137-145) mmol/L Potassium (3.5-5.1) mmol/L Chloride (98-107) mmol/L Carbon Dioxide (22-30) mmol/L Anion Gap mmol/L BUN (9-20) mg/dL Creatinine (0.66-1.25) mg/dL Est GFR (CKD-EPI)AfAm (>60 ml/min/1.73 sqM) Est GFR (CKD-EPI)NonAf (>60 ml/min/1.73 sqM) Glucose (74-99) mg/dL Calcium (8.4-10.2) mg/dL Magnesium (1.6-2.3) mg/dL Total Bilirubin (0.2-1.3) mg/dL AST (17-59) U/L ALT (21-72) U/L Alkaline Phosphatase (38-126) U/L CK-MB (CK-2) (0.0-2.4) ng/mL Troponin I (0.000-0.034) ng/mL Total Protein (6.3-8.2) g/dL Albumin (3.5-5.0) g/dL TSH (0.465-4.680) mIU/L Disposition Clinical Impression: Symptomatic bradycardia Disposition: ADMITTED IP TO THIS HOSP Condition: Stable
[2018-01-30 23:17] LABS: INR 1.1 (<1.2); Partial Thromboplastin Time 25.5 sec (22.0-30.0); Prothrombin Time 10.5 sec (9.0-12.0)
[2018-01-30 23:21] LABS: ALT 25 U/L (21-72); AST 17 U/L (17-59); Alkaline Phosphatase 34 U/L (38-126); Anion Gap 7 mmol/L; Blood Urea Nitrogen 10 mg/dL (9-20); Calcium 9.5 mg/dL (8.4-10.2); Carbon Dioxide 26 mmol/L (22-30); Chloride 107 mmol/L (98-107); Glucose 101 mg/dL (74-99); Sodium 140 mmol/L (137-145); Total Bilirubin 0.3 mg/dL (0.2-1.3); Total Protein 6.4 g/dL (6.3-8.2)
[2018-01-30 23:42] LABS: Creatine Kinase MB <0.2 ng/mL (0.0-2.4); Troponin I <0.012 ng/mL (0.000-0.034)
[2018-01-31] MEDS ORDERED: NALOXONE 0.4 MG/ML 1 ML VIAL IV PRN (00:04)
[2018-01-31] MEDS ORDERED: FAMOTIDINE 20 MG TAB PO PRN (00:08)
[2018-01-31] MEDS ORDERED: ZOLPIDEM 10 MG TAB PO PRN (00:08)
[2018-01-31] MEDS ORDERED: NAPROXEN 250 MG TAB PO PRN (00:08)
[2018-01-31 06:29] LABS: Creatine Kinase 116 U/L (55-170)
[2018-01-31 06:43] LABS: Creatine Kinase MB <0.2 ng/mL (0.0-2.4); Troponin I <0.012 ng/mL (0.000-0.034)
--- NOTE | 2018-01-31 07:54 | P.CRDCN ---
History of Present Illness History of present illness: Patient presented to the emergency room with lightheadedness burning in the chest and malaise Twelve-lead ECG shows sinus rhythm normal [facility] narrow QRS, negatively oriented terminal sharp deflection in the QRS of lead V1 PVCs left bundle branch block pattern late transition upright QRS is in inferior leads predominantly negative in lead 1 and deep negative in aVL Chest x-ray normal 2-D echo and Doppler study shows low normal LV systolic function 50-55% right ventricle appeared normal Previous ECG is reviewed. They show PVCs, intrinsic QRS has a terminal deflection, sharp in the QRS in lead V1 fractionated QRS of the PVC in lead V4 Stress test in December showed excellent exercise tolerance intermittent PVCs with exercise, no nonsustained ventricular tachycardia no ST segment abnormalities suggestive of ischemia Past Medical History Past Medical History: No Reported History Additional Past Medical History / Comment(s): undiagnosed heart issues, pvc's, recent admission for "extra heart beats, seen a stenciler and currently has a holter monitor on History of Any Multi-Drug Resistant Organisms: None Reported Past Surgical History: Appendectomy, Orthopedic Surgery, Tonsillectomy Additional Past Surgical History / Comment(s): left hip surgery, left shoulder, eye surgery Past Anesthesia/Blood Transfusion Reactions: No Reported Reaction Smoking Status: Current every day smoker Medications and Allergies Home Medications Medication Instructions Recorded Confirmed Type Cetirizine HCl [Zyrtec] 10 mg PO DAILY 01/13/18 01/31/18 History Naproxen 500 mg PO BID PRN 01/13/18 01/31/18 History Ranitidine HCl 150 mg PO BID PRN 01/13/18 01/30/18 History Zolpidem [Ambien] 10 mg PO HS PRN 01/13/18 01/30/18 History Allergies Allergy/AdvReac Type Severity Reaction Status Date / Time morphine Allergy Swelling Verified 01/31/18 01:09 Physical Exam Vitals: Vital Signs Temp Pulse Pulse Resp BP BP Pulse Ox 01/31/18 03:05 16 01/31/18 03:02 97.8 F 56 L 16 99/50 98 01/31/18 01:14 16 01/31/18 00:43 97.7 F 58 L 16 107/64 96 01/31/18 00:15 56 L 16 108/58 99 01/30/18 22:18 97.9 F 44 L 16 124/64 98 Intake and Output 01/30/18 01/31/18 01/31/18 22:59 06:59 14:59 Other: Voiding Method Toilet # Voids 1 Weight 68.039 kg 67.5 kg Results 01/30/18 22:53 01/30/18 22:53 Cardiac Enzymes 01/30/18 01/30/18 01/31/18 Range/Units 22:53 22:53 05:20 AST 17 (17-59) U/L CK-MB (CK-2) <0.2 <0.2 (0.0-2.4) ng/mL Troponin I <0.012 <0.012 (0.000-0.034) ng/mL Coagulation 01/30/18 Range/Units 22:53 PT 10.5 (9.0-12.0) sec APTT 25.5 (22.0-30.0) sec CBC 01/30/18 Range/Units 22:53 WBC 7.4 (3.8-10.6) k/uL RBC 4.57 (4.30-5.90) m/uL Hgb 13.2 (13.0-17.5) gm/dL Hct 40.1 (39.0-53.0) % Plt Count 248 (150-450) k/uL Comprehensive Metabolic Panel 01/30/18 Range/Units 22:53 Sodium 140 (137-145) mmol/L Potassium 4.0 (3.5-5.1) mmol/L Chloride 107 (98-107) mmol/L Carbon Dioxide 26 (22-30) mmol/L BUN 10 (9-20) mg/dL Creatinine 0.70 (0.66-1.25) mg/dL Glucose 101 H (74-99) mg/dL Calcium 9.5 (8.4-10.2) mg/dL AST 17 (17-59) U/L ALT 25 (21-72) U/L Alkaline Phosphatase 34 L (38-126) U/L Total Protein 6.4 (6.3-8.2) g/dL Albumin 4.0 (3.5-5.0) g/dL Current Medications Generic Name Dose Route Start Last Admin Trade Name Freq PRN Reason Stop Dose Admin Famotidine 20 mg 01/31/18 00:08 Pepcid PO BID PRN STOMACH Loratadine 10 mg 03/10/18 09:00 Claritin PO DAILY JORGE Naloxone HCl 0.2 mg 01/31/18 00:04 Narcan IV Q2M PRN Opioid Reversal Naproxen 500 mg 01/31/18 00:08 Naprosyn PO BID PRN Pain/Inflammation Nicotine 1 patch 01/31/18 09:00 Habitrol 14mg/24hr Patch TRANSDERM DAILY JORGE Zolpidem Tartrate 10 mg 01/31/18 00:08 Ambien PO HS PRN SLEEP Intake and Output 01/30/18 01/31/18 01/31/18 22:59 06:59 14:59 Other: Voiding Method Toilet # Voids 1 Weight 68.039 kg 67.5 kg 01/30/18 22:53 01/30/18 22:53
[2018-01-31] MEDS ORDERED: NICOTINE 14MG/24HR PATCH TRANSDERM SCH (09:00)
[2018-01-31] MEDS ORDERED: LORATADINE 10 MG TAB PO SCH (09:00)
[2018-01-31 12:30] VITALS: BP 96/56; PULSE 62; RESP 16; TEMP 97.8
--- NOTE | 2018-01-31 13:25 | CONS ---
CONSULTATION A 32-year-old male patient, who presented yet again with symptoms of palpitations, dizziness, burning chest discomfort. His cardiac enzymes are normal. A 2D echo has shown normal LV size and systolic function. Stress test was normal. Subsequently, he went to the [facility] where apparently a CTA was done and by his history, he states that he was told that his aortic root was okay and his coronary arteries did not show any significant abnormalities and there were no major blockages. He is scheduled to see an cardiac exercise physiologist this Friday at [place]. REVIEW OF SYSTEMS: No fever, chills, or rigors. No cough or expectoration. No nausea, vomiting, diarrhea, hematuria, dysuria. No strokes, seizures or skin lesions. No musculoskeletal complaints. PAST SURGICAL HISTORY: Appendectomy, orthopedic surgery and tonsillectomy. SOCIAL HISTORY: He is a current smoker. MEDICATIONS: His medications include Zyrtec, Naprosyn, , and Ambien. EXAMINATION: On examination, his blood pressure is 107/64 mmHg, pulse rate is in the 50s. He is afebrile. Head and neck examination is normal. Heart sounds are normal. Lungs are clear to auscultation. Extremities are warm, no edema. A 12-lead ECG shows sinus rhythm with a sharp dermal deflection at the end of the QRS in lead V1. Outflow tract PVCs with the left bundle branch block morphology. SUGGEST: From a cardiac standpoint his cardiac enzymes are normal. He is to follow up as an outpatient with the cardiac exercise physiologist in the [facility] in [place]. I would recommend cardiac MRI given his ECG findings and consideration for antiarrhythmic treatment will be based upon the results of the cardiac MRI. His burning chest discomfort could be GI in origin. His cardiac enzymes are normal. He has had a normal stress test. I do not have access to his chest CTA that was just done recently. MMODL / IJN: [id number] /
--- NOTE | 2018-01-31 18:25 | HP ---
HISTORY AND PHYSICAL DATE OF SERVICE: 01/31/2018. CHIEF COMPLAINT: Chest pain. BRIEF HISTORY ON THIS PATIENT: A 32-year-old male patient who presented to the ED with a complaint of palpitation, dizziness and burning chest pain. The patient claims that it was associated with shortness of breath and generalized malaise, claims his symptoms started suddenly in the evening and they were persistent. He was starting to get lightheaded and so he decided to come to the ER. In the ED, patient was found to bradycardic with multiple PVCs. The patient had a similar admission before at which time he had same complaints. A stress echo was done at that time, which was negative. There was a discussion about possible pacemaker insertion, possibly at [place]. The patient claims they are still investigating it. PAST MEDICAL HISTORY: Significant for a cardiac arrhythmias and PVCs. He is chronic smoker, gastroesophageal reflux disease, DJD, seasonal allergies. PAST SURGICAL HISTORY: Significant for appendectomy, orthopedic surgery, tonsillectomy, left hip and left shoulder surgery. SOCIAL HISTORY: Patient smokes every day. No history of alcohol or drug abuse. FAMILY HISTORY: Unremarkable for coronary artery disease, diabetes or hypertension. He is allergic to MORPHINE. MEDICATIONS: He is on: 1. Nicotine patch. 2. Zyrtec 10 mg daily. 3. Naprosyn 500 mg b.i.d. p.r.n. 4. Zantac 150 mg b.i.d. p.r.n. 5. Ambien 10 mg p.o. daily q.h.s. REVIEW OF SYSTEMS: Patient denies any fever or chills. HEENT: No vision or hearing loss. RESPIRATORY: Short shortness of breath as described above. CARDIOVASCULAR: As described above. GI/ABDOMEN: No nausea, vomiting or diarrhea. GENITOURINARY: No hematuria. No dysuria. EXTREMITIES/MUSCULOSKELETAL: No muscle or joint deformities. The rest of 14-point review of system is unremarkable. PHYSICAL EXAMINATION: The patient is awake, alert, oriented x3. He is in no acute distress. VITAL SIGNS: Temperature 97.9, pulse 44, respiration 16, O2 saturation 124/64, O2 saturation 98%. HEENT: Atraumatic, normocephalic. Pupils equal and react to light. Extraocular movements intact. Buccal mucosa is fair. Neck is supple. No goiter or lymphadenopathy. JVD is negative. No carotid bruit heard. Lungs are clear to auscultate. No rales, rhonchi or wheezes. Heart is regular rate and rhythm with occasional PVCs. Abdomen is soft and nontender, nondistended. Bowel sounds positive. EXTREMITIES: No edema, clubbing or cyanosis. NEUROLOGICAL: Cranial nerves 2-12 grossly intact. No gross motor or sensory deficit. The patient's 12-lead EKG did show sinus rhythm with a with QTc of 439 and PVCs. The rest the labs: CBC: White blood count of 7.4, hemoglobin 13.2, hematocrit 40.1 and platelet count of 248. Chemical profile: Sodium 140, potassium 4.0, chloride 107, bicarb 26, BUN 10, creatinine 0.7. Cardiac enzymes are negative. ASSESSMENT: 1. Chest pain. 2. Cardiac arrhythmias. 3. A smoker. Plan is to admit the patient to telemetry. Monitor cardiac enzymes, EKG. Will consult Cardiology for further recommendations. Nicotine patch for smoking. MMODL / IJN: [id number] /
== END 2018-01-31 14:11 | disposition home or self-care (01) ==
LOC: EC 22:16 → 3OBS 01-31 00:04
PROVIDERS: ADMIT Internal Medicine; ATTEND Internal Medicine
DX: R07.89 Other chest pain (principal); R42 Dizziness and giddiness; R53.81 Other malaise; R00.1 Bradycardia, unspecified; R06.02 Shortness of breath; K21.9 Gastro-esophageal reflux disease without esophagitis; M19.90 Unspecified osteoarthritis, unspecified site; J30.2 Other seasonal allergic rhinitis; F17.200 Nicotine dependence, unspecified, uncomplicated; Z88.5 Allergy status to narcotic agent
CPT/HCPCS: 99285; 96360 ×2; 36415; 93005; 80053; 84443; 82550; 82553 ×2; 83735; 84484 ×2; 85025; 85610; 85730; 71046; G0378

== ENCOUNTER 2018-02-09 10:21 | Emergency (ER) | payer OTHER ==
[2018-02-09 10:55] VITALS: BP 109/53; PULSE 76; RESP 17; TEMP 98.1
--- NOTE | 2018-02-09 11:40 | XR ---
Right foot and right ankle HISTORY: Trauma and pain 3 views of the right foot and 3 views of the right ankle are submitted. bone mineralization, joint spaces and alignment are maintained. There is soft tissue swelling. IMPRESSION: No fracture or dislocation is evident. Follow-up as indicated.
--- NOTE | 2018-02-09 11:41 | ED ---
Lower Extremity Injury HPI - General Chief Complaint: Extremity Injury, Lower Stated Complaint: Right foot pain Time Seen by Provider: 02/09/18 11:01 Source: patient, RN notes reviewed Mode of arrival: ambulatory Limitations: no limitations - History of Present Illness Initial Comments: This is a 32 year-old male who presents to the emergency department with chief complaint of right foot injury. Patient states that yesterday afternoon he was cutting down a tree. He states that he then was cutting the tree into smaller logs when one of the logs fell and landed on his right foot. Patient states that initially he was fine but when he returned home later that evening his right foot began hurting. He states he has difficulty bearing weight and ambulating. Denies any other injuries or trauma. States he has been applying ice to the area. Denies fever, chills, chest pain, shortness of breath, abdominal pain, nausea or vomiting, constipation or diarrhea, dysuria or hematuria, numbness or tingling, headache or vision changes. - Related Data Home Medications Medication Instructions Recorded Confirmed Cetirizine HCl [Zyrtec] 10 mg PO DAILY 01/13/18 01/31/18 Naproxen 500 mg PO BID PRN 01/13/18 01/31/18 Ranitidine HCl 150 mg PO BID PRN 01/13/18 01/30/18 Zolpidem [Ambien] 10 mg PO HS PRN 01/13/18 01/30/18 Allergies Allergy/AdvReac Type Severity Reaction Status Date / Time morphine Allergy Swelling Verified 02/09/18 10:55 Review of Systems ROS Statement: Those systems with pertinent positive or pertinent negative responses have been documented in the HPI. ROS Other: All systems not noted in ROS Statement are negative. Past Medical History Past Medical History: No Reported History Additional Past Medical History / Comment(s): undiagnosed heart issues, pvc's, recent admission for "extra heart beats, seen a laundromat manager and currently has a holter monitor on History of Any Multi-Drug Resistant Organisms: None Reported Past Surgical History: Appendectomy, Orthopedic Surgery, Tonsillectomy Additional Past Surgical History / Comment(s): left hip surgery, left shoulder, eye surgery Past Anesthesia/Blood Transfusion Reactions: No Reported Reaction Past Psychological History: No Psychological Hx Reported Smoking Status: Current every day smoker Past Alcohol Use History: Rare Past Drug Use History: None Reported General Exam - General Exam Comments Initial Comments: General: Awake and alert, well-developed; in no apparent distress. HEENT: Head atraumatic, normocephalic. Pupils are equal, round and reactive to light. Extraocular movements intact. Poor dentition. Neck: Supple. Normal ROM. Cardiovascular: Regular rate and rhythm. No murmurs, rubs or gallops. Chest symmetrical. Respiratory: Lungs clear to auscultation bilaterally. No wheezes, rales or rhonchi. Normal respiratory effort with no use of accessory muscles. Musculoskeletal: Normal range of motion of right foot and right ankle. No swelling, erythema or bruising noted. There is tenderness on palpation of first and second metatarsals. Sensation is intact. Pedal and posterior tibial pulses are 2+ equal and palpable bilaterally. Skin: [place], warm and dry. Neurological: Alert and oriented x3. CN II-XII grossly intact. Speech is fluent and answers are appropriate. No focal neuro deficits. Psychiatric: Normal mood and affect. No overt signs of depression or anxiety noted. Limitations: no limitations Course Vital Signs 02/09/18 10:54 Temperature 98.1 F Pulse Rate 76 Respiratory 17 Rate Blood Pressure 109/53 O2 Sat by Pulse 99 Oximetry Medical Decision Making - Medical Decision Making This is a 32-year-old male who presented to the emergency department with chief complaint of right foot injury. X-rays of right foot and right ankle revealed no evidence for acute fracture or dislocation. Patient likely suffering from a foot contusion. Recommended ice, Tylenol or Motrin as needed. Patient is in no acute distress and will be discharged home. He is in agreement and voices understanding. All questions were answered. - Radiology Data Radiology results: report reviewed Right foot and right ankle x-ray impression: No fracture or dislocation is evident. Follow-up is indicated. Disposition Clinical Impression: Foot contusion Disposition: HOME SELF-CARE Condition: Good Instructions: Foot Contusion (ED) Additional Instructions: Please rest, ice, elevate and take Tylenol or Motrin as needed. Please follow up with primary care provider within 1-2 days. Return to emergency department if symptoms should worsen or any concerns arise. Referrals: [facility],Clinic [Primary Care Provider] - 1-2 days Time of Disposition: 11:49
== END 2018-02-09 11:53 | disposition home or self-care (01) ==
LOC: EC 10:21
DX: S90.31XA Contusion of right foot, initial encounter (principal); F17.200 Nicotine dependence, unspecified, uncomplicated; Z79.899 Other long term (current) drug therapy; Z88.5 Allergy status to narcotic agent; W20.8XXA Other cause of strike by thrown, projected or falling object, initial encounter; Y93.89 Activity, other specified
CPT/HCPCS: 99283

== ENCOUNTER 2019-10-18 13:11 | Emergency (ER) | payer OTHER ==
[2019-10-18] MEDS ORDERED: fentaNYL (PF) 50 MCG/ML 2 ML AMP IVP STA ×3 (13:23→16:06)
--- NOTE | 2019-10-18 13:29 | ED ---
Fall HPI - General Source: patient, family, EMS Mode of arrival: EMS Limitations: no limitations <Hal Segura - Last Filed: 10/18/19 16:01> <Melina Modi - Last Filed: 10/23/19 14:32> - General Chief Complaint: Fall Stated Complaint: Fall Time Seen by Provider: 10/18/19 13:13 - History of Present Illness Initial Comments: This a 34-year-old male presents emergency Department chief complaint of fall, left hip pain. Patient reportedly was going towards the deep on to clean it and states that he slipped. Patient slid down striking his left hip, pelvis region. Patient denies any head injury no loss conscious. Patient states that he was given pain meds by EMS which minimally helped. Patient denies any head injury. Patient denies any chest pain, shortness breath, abdominal pain. EMS reported that his blood pressure was slightly low though patient states that this is normal for him. (Hal Segura) - Related Data Home Medications Medication Instructions Recorded Confirmed Cetirizine HCl [Zyrtec] 10 mg PO DAILY 01/13/18 01/31/18 Naproxen 500 mg PO BID PRN 01/13/18 01/31/18 Ranitidine HCl 150 mg PO BID PRN 01/13/18 01/30/18 Zolpidem [Ambien] 10 mg PO HS PRN 01/13/18 01/30/18 Allergies Allergy/AdvReac Type Severity Reaction Status Date / Time morphine Allergy Swelling Verified 02/09/18 10:55 Review of Systems ROS Other: All systems not noted in ROS Statement are negative. <Hal Segura - Last Filed: 10/18/19 16:01> ROS Other: All systems not noted in ROS Statement are negative. <Melina Modi - Last Filed: 10/23/19 14:32> ROS Statement: Those systems with pertinent positive or pertinent negative responses have been documented in the HPI. 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 and currently has a holter monitor on History of Any Multi-Drug Resistant Organisms: None Reported Past Surgical History: Appendectomy, Orthopedic Surgery, Tonsillectomy Additional Past Surgical History / Comment(s): left hip surgery, left shoulder, eye surgery Past Anesthesia/Blood Transfusion Reactions: No Reported Reaction Past Psychological History: No Psychological Hx Reported Smoking Status: Current every day smoker Past Alcohol Use History: Rare Past Drug Use History: None Reported <Hal Segura M - Last Filed: 10/18/19 16:01> General Exam Limitations: no limitations General appearance: alert, in no apparent distress Head exam: Present: atraumatic, normocephalic, normal inspection Neck exam: Present: normal inspection, full ROM. Absent: tenderness, meningismus, lymphadenopathy Respiratory exam: Present: normal lung sounds bilaterally. Absent: respiratory distress, wheezes, rales, rhonchi, stridor Cardiovascular Exam: Present: regular rate, normal rhythm, normal heart sounds. Absent: systolic murmur, diastolic murmur, rubs, gallop, clicks GI/Abdominal exam: Present: soft, normal bowel sounds. Absent: distended, tenderness, guarding, rebound, rigid Extremities exam: Present: other (Pulses equal bilaterally lower extremity, severe tenderness to left hip, anterior pelvic region there is noted swelling. No pain distal femur. Patient is rotated, shortened) Neurological exam: Present: alert, oriented X3, CN II-XII intact Skin exam: Present: warm, dry, intact, normal color. Absent: rash <Hal Segura - Last Filed: 10/18/19 16:01> Course Vital Signs 10/18/19 10/18/19 10/18/19 13:13 14:29 14:30 Temperature 97.6 F Pulse Rate 76 68 70 Respiratory 22 24 20 Rate Blood Pressure 95/51 109/55 108/58 O2 Sat by Pulse 100 99 100 Oximetry 10/18/19 10/18/19 10/18/19 14:35 14:40 14:45 Temperature Pulse Rate 78 59 L 56 L Respiratory 20 18 18 Rate Blood Pressure 118/67 94/65 109/63 O2 Sat by Pulse 100 99 100 Oximetry 10/18/19 10/18/19 10/18/19 14:50 14:55 15:00 Temperature Pulse Rate 84 63 73 Respiratory 16 20 18 Rate Blood Pressure 109/59 98/58 120/61 O2 Sat by Pulse 99 100 100 Oximetry 10/18/19 10/18/19 10/18/19 15:15 15:30 16:00 Temperature 98.2 F Pulse Rate 75 76 73 Respiratory 18 19 24 Rate Blood Pressure 130/63 131/67 127/72 O2 Sat by Pulse 99 99 100 Oximetry 10/18/19 16:22 Temperature Pulse Rate 73 Respiratory 22 Rate Blood Pressure 114/71 O2 Sat by Pulse 98 Oximetry Procedures - Orthopedic Joint Reduction Joint #1 Consent Obtained: verbal consent, written consent Side: left Joint Reduction Location: hip Analgesia: procedural sedation Technique Used: traction/counter-traction, direct manipulation Post-Reduction Neuro Exam: intact Post-Reduction Vascular Exam: intact Post Reduction X-Ray Obtained: Yes Post Reduction X-Ray Results: not reduced Splint Applied: No - Procedural Sedation Procedural Sedation Start Time: 14:29 Procedural Sedation Stop Time: 15:00 Indications: fracture/dislocation reduction ASA Class: I Mallampati Airway Score: 2 Time of Last PO Intake: 11:30 Preparation: diagnostic cardiac sonographer applied, pulse oximeter, capnometry used, supplemental O2 applied, suction/airway equipment at bedside, IV secured IV Propofol Dose (mgs): 260 (cc) Complications: none Patient Tolerated Procedure: other (unable to reduce fracture. Adquate analgesia obtained) <Melina Modi - Last Filed: 10/23/19 14:32> Medical Decision Making <Hal Segura - Last Filed: 10/18/19 16:01> <Melina Modi - Last Filed: 10/23/19 14:32> - Medical Decision Making hip was unable to be reduced with conscious sedation, I did discuss case with orthopedics who believes it may be an acetabular fracture CT was obtained which shows multiple chip fractures. I did discuss the case with [facility] orthoped[facility] Dr. Guerrero who accepts the transfer I did discuss the case with [facility] Gh[facility] ER Dr. Stoddard. Patient is neurovascular intact. Patient be transferred in stable condition. (Hal Segura) I was available for consultation in the emergency department. The history and physical exam were done by the midlevel provider. I was consulted for this patients care. I reviewed the case with the midlevel provider and based on their presentation of the patient, I agree with the assessment, medical decision making and plan of care as documented. I performed the conscious sedation on the patient without successful reduction. Chart was dictated using [employer] dictation software. Attempts were made to correct any dictation errors however some typographical errors may persist. (Melina Modi) Disposition Time of Disposition: 16:05 - Out of Hospital Transfer - Req. Specs Out of Hospital Transfer - Requested Specifics: Other Emergency Center ([facility]) <Hal Segura - Last Filed: 10/18/19 16:01> <Melina Modi - Last Filed: 10/23/19 14:32> Clinical Impression: Fall, Closed fracture of acetabulum with dislocation of left hip Disposition: OTHER INSTITUTION NOT DEFINED Condition: Stable Referrals: [facility],Clinic [Primary Care Provider] - 1-2 days
[2019-10-18] MEDS ORDERED: PROPOFOL 10 MG/ML 20 ML VIAL IV STA (14:13)
[2019-10-18] MEDS ORDERED: SODIUM CHLORIDE 0.9% 1,000 ML IV STA (14:13)
--- NOTE | 2019-10-18 14:14 | XR ---
EXAMINATION TYPE: XR femur LT DATE OF EXAM: 10/18/2019 COMPARISON: None HISTORY: Trauma, pain TECHNIQUE: Left femur is examined in 2 projections. FINDINGS: Femoral head articulates with the acetabulum. No acute fractures are evident. There is a dislocation of the humeral head in relation to the acetabulum. IMPRESSION: 1. Dislocation left hip
--- NOTE | 2019-10-18 14:15 | XR ---
EXAMINATION TYPE: XR pelvis AP view DATE OF EXAM: 10/18/2019 COMPARISON: None HISTORY: Trauma, pain left hip pain, fall TECHNIQUE: AP pelvis FINDINGS: There is dislocation of the left femoral head in relation to the acetabulum. No acute fract ures are evident. Sacroiliac joints and symphysis pubis are normal Right femoral head articulates with the acetabulum. IMPRESSION: 1. Dislocation left hip
[2019-10-18] MEDS ORDERED: PROPOFOL 10 MG/ML 20 ML VIAL IV ONE ×2 (14:35→14:46)
--- NOTE | 2019-10-18 15:45 | CT ---
EXAMINATION TYPE: CT hip LT wo con DATE OF EXAM: 10/18/2019 COMPARISON: HISTORY: Left hip pain post fall. unable to reduce dislocation CT DLP: 494.7 mGycm Automated exposure control for dose reduction was used. Unenhanced CT of the left hip was performed w ith bone and soft tissue window settings submitted. With 3-D reconstruction at a separate workstation . FINDINGS: There is anterior dislocation of the left humeral head relative to the acetabulum. Multiple chip frac tures are noted totaling approximately 8 to 10 in number. The largest fragment is noted within the martha int space superior posterior acetabular region measuring 7.6 mm. There is a large joint effusion like ly related to hemarthrosis. No additional fractures identified. IMPRESSION: ANTERIOR DISLOCATION OF THE LEFT HIP WITH MULTIPLE BONE FRAGMENTS SEEN SOME OF WHICH ARE INTRA-ARTICU LAR IN LOCATION. HEMARTHROSIS IDENTIFIED.
[2019-10-18 16:02] VITALS: PULSE 73; TEMP 98.2
[2019-10-18 16:23] VITALS: BP 114/71; RESP 22
== END 2019-10-18 17:10 | disposition short-term general hospital (02) ==
LOC: EC 13:11
DX: S32.402A Unspecified fracture of left acetabulum, initial encounter for closed fracture (principal); F17.200 Nicotine dependence, unspecified, uncomplicated; Z88.5 Allergy status to narcotic agent; Z86.79 Personal history of other diseases of the circulatory system; Z98.890 Other specified postprocedural states; W17.3XXA Fall into empty swimming pool, initial encounter; Y93.E9 Activity, other interior property and clothing maintenance; Y92.009 Unspecified place in unspecified non-institutional (private) residence as the place of occurrence of the external cause
CPT/HCPCS: 99285; 27222; 99152; 99153; 96374; 96361 ×3; 72170; 73552; 73700; J3010; J2704

== ENCOUNTER → 2020-12-20 | Outpatient (CLI) | payer MEDICARE, OTHER | END | disposition home or self-care (01) | LOC: LABWHC1 12:07 | PROVIDERS: ATTEND Physician Assistant | DX: Z01.89 Encounter for other specified special examinations (principal) | CPT/HCPCS: U0003; C9803; U0005 ==

== ENCOUNTER 2021-01-13 19:14 | Emergency (ER) | payer OTHER ==
[2021-01-13 20:17] LABS: Basophils # (A) 0.1 k/uL (0-0.2); Basophils % (A) 1 %; Eosinophils # (A) 0.5 k/uL (0-0.7); Eosinophils % (A) 6 %; HCT 44.1 % (39.0-53.0); Lymphocytes # (A) 3.1 k/uL (1.0-4.8); Lymphocytes % (A) 37 %; MCH 30.4 pg (25.0-35.0); MCV 89.4 fL (80.0-100.0); Mean Platelet Volume 7.7; Monocytes # (A) 0.5 k/uL (0-1.0); Monocytes % (A) 6 %; Neutrophils % (A) 48 %; Platelet Count 335 k/uL (150-450); RBC 4.94 m/uL (4.30-5.90); RDW 13.4 % (11.5-15.5); WBC 8.3 k/uL (3.8-10.6)
[2021-01-13 20:30] LABS: ALT 10 U/L (4-49); AST 16 U/L (17-59); African American GFR (CKD) >90 (>60 ml/min/1.73 sqM); Albumin 4.8 g/dL (3.5-5.0); Alkaline Phosphatase 42 U/L (38-126); Anion Gap 10 mmol/L; Blood Urea Nitrogen 17 mg/dL (9-20); Calcium 9.8 mg/dL (8.4-10.2); Carbon Dioxide 23 mmol/L (22-30); Chloride 105 mmol/L (98-107); Glucose 102 mg/dL (74-99); Non-African American GFR(CKD) >90 (>60 ml/min/1.73 sqM); Potassium 4.2 mmol/L (3.5-5.1); Sodium 138 mmol/L (137-145); Total Bilirubin 0.3 mg/dL (0.2-1.3); Total Protein 7.7 g/dL (6.3-8.2)
[2021-01-13 20:34] LABS: D-Dimer 0.2 mg/L FEU (<0.60); INR 0.9 (<1.2); Partial Thromboplastin Time 22.6 sec (22.0-30.0); Prothrombin Time 9.9 sec (9.0-12.0)
--- NOTE | 2021-01-13 20:53 | US ---
EXAMINATION TYPE: US venous doppler duplex LE LT DATE OF EXAM: 01/13/2021 7:48 PM COMPARISON: NONE CLINICAL HISTORY: r/o dvt. Left leg pain, patient on aspirin SIDE PERFORMED: Left TECHNIQUE: The lower extremity deep venous system is examined utilizing real time linear array sonog hugo with graded compression, doppler sonography and color-flow sonography. VESSELS IMAGED: Common Femoral Vein Deep Femoral Vein Greater Saphenous Vein * Femoral Vein Popliteal Vein Small Saphenous Vein * Proximal Calf Veins (* superficial vessels) Left Leg: Appears negative for DVT IMPRESSION: No evidence of deep vein thrombosis in the left leg.
[2021-01-13 20:55] VITALS: BP 103/69; PULSE 60; RESP 16; TEMP 98.4
--- NOTE | 2021-01-13 21:03 | ED ---
Lower Extremity Injury HPI - General Chief Complaint: Extremity Injury, Lower Stated Complaint: post hip surgery/calf pain Time Seen by Provider: 01/13/21 19:35 Source: patient Mode of arrival: ambulatory Limitations: physical limitation - History of Present Illness Initial Comments: 35-year-old male presents to emergency Department with a chief complaint of left calf pain. Patient states a few days ago he had left hip arthroplasty and following the procedure he developed left calf pain. Patient reports this seems to be continuous without any impairment. States he has been taking his medication for pain with no significant improvement in his symptoms. Denies unilateral leg swelling. Does report somewhat increased shortness of breath compared to prior to procedure. Patient does report history of smoking so he does have COPD.he denies any trauma to the leg. States he is otherwise ambulating with crutches. Denies any chest pain or hemoptysis. - Related Data Home Medications Medication Instructions Recorded Confirmed Cetirizine HCl [Zyrtec] 10 mg PO DAILY 01/13/18 01/31/18 Naproxen 500 mg PO BID PRN 01/13/18 01/31/18 Ranitidine HCl 150 mg PO BID PRN 01/13/18 01/30/18 Zolpidem [Ambien] 10 mg PO HS PRN 01/13/18 01/30/18 Allergies Allergy/AdvReac Type Severity Reaction Status Date / Time No Known Allergies Allergy Verified 01/13/21 19:31 Review of Systems ROS Statement: Those systems with pertinent positive or pertinent negative responses have been documented in the HPI. ROS Other: All systems not noted in ROS Statement are negative. 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 and currently has a holter monitor on, heart ablation History of Any Multi-Drug Resistant Organisms: None Reported Past Surgical History: Appendectomy, Orthopedic Surgery, Tonsillectomy Additional Past Surgical History / Comment(s): 2 left hip surgery, left shoulder, eye surgery Past Anesthesia/Blood Transfusion Reactions: No Reported Reaction Past Psychological History: Anxiety, Depression, PTSD Smoking Status: Current every day smoker Past Alcohol Use History: Rare Past Drug Use History: None Reported General Exam Limitations: physical limitation (has crutches) General appearance: alert, in no apparent distress Head exam: Present: atraumatic, normocephalic, normal inspection Eye exam: Present: normal appearance, PERRL, EOMI Pupils: Present: normal accommodation ENT exam: Present: normal exam, normal oropharynx, mucous membranes moist, TM's normal bilaterally, normal external ear exam Neck exam: Present: normal inspection, full ROM. Absent: tenderness Respiratory exam: Present: normal lung sounds bilaterally. Absent: respiratory distress, wheezes, rales, rhonchi, stridor Cardiovascular Exam: Present: regular rate, normal rhythm, normal heart sounds Extremities exam: Present: normal inspection, full ROM, tenderness, normal capillary refill, calf tenderness (left calf tenderness.), other (palpable DP and PT bilaterally.). Absent: pedal edema, joint swelling Back exam: Present: normal inspection, full ROM. Absent: tenderness Neurological exam: Present: alert, oriented X3 Psychiatric exam: Present: normal affect, normal mood Skin exam: Present: warm, dry, intact, normal color Course Vital Signs 01/13/21 01/13/21 19:25 20:54 Temperature 98.2 F 98.4 F Pulse Rate 80 60 Respiratory 18 16 Rate Blood Pressure 99/65 103/69 O2 Sat by Pulse 100 98 Oximetry Medical Decision Making - Medical Decision Making 35-year-old male presents to the emergency department chief complaint of left calf pain. On physical examination, patient is neurovascularly intact in the left lower extremity. Patient does ambulate with crutches. Ultrasound Doppler shows no signs of a DVT. CBC CMP coags within normal limits. Troponins normal and a negative d-dimer. he was advised to follow up with his clinical safety specialist. Return parameters discussed the patient was understanding and a greeable. Case discussed with - Lab Data Result diagrams: 01/13/21 20:07 01/13/21 20:07 Lab Results 01/13/21 01/13/21 01/13/21 Range/Units 20:07 20:07 20:07 WBC 8.3 (3.8-10.6) k/uL RBC 4.94 (4.30-5.90) m/uL Hgb 15.0 (13.0-17.5) gm/dL Hct 44.1 (39.0-53.0) % MCV 89.4 (80.0-100.0) fL MCH 30.4 (25.0-35.0) pg MCHC 34.0 (31.0-37.0) g/dL RDW 13.4 (11.5-15.5) % Plt Count 335 (150-450) k/uL MPV 7.7 Neutrophils % 48 % Lymphocytes % 37 % Monocytes % 6 % Eosinophils % 6 % Basophils % 1 % Neutrophils # 4.0 (1.3-7.7) k/uL Lymphocytes # 3.1 (1.0-4.8) k/uL Monocytes # 0.5 (0-1.0) k/uL Eosinophils # 0.5 (0-0.7) k/uL Basophils # 0.1 (0-0.2) k/uL PT 9.9 (9.0-12.0) sec INR 0.9 (<1.2) APTT 22.6 (22.0-30.0) sec D-Dimer 0.20 (<0.60) mg/L FEU Sodium 138 (137-145) mmol/L Potassium 4.2 (3.5-5.1) mmol/L Chloride 105 (98-107) mmol/L Carbon Dioxide 23 (22-30) mmol/L Anion Gap 10 mmol/L BUN 17 (9-20) mg/dL Creatinine 0.85 (0.66-1.25) mg/dL Est GFR (CKD-EPI)AfAm >90 (>60 ml/min/1.73 sqM) Est GFR (CKD-EPI)NonAf >90 (>60 ml/min/1.73 sqM) Glucose 102 H (74-99) mg/dL Calcium 9.8 (8.4-10.2) mg/dL Total Bilirubin 0.3 (0.2-1.3) mg/dL AST 16 L (17-59) U/L ALT 10 (4-49) U/L Alkaline Phosphatase 42 (38-126) U/L Troponin I (0.000-0.034) ng/mL Total Protein 7.7 (6.3-8.2) g/dL Albumin 4.8 (3.5-5.0) g/dL 01/13/21 Range/Units 20:07 WBC (3.8-10.6) k/uL RBC (4.30-5.90) m/uL Hgb (13.0-17.5) gm/dL Hct (39.0-53.0) % MCV (80.0-100.0) fL MCH (25.0-35.0) pg MCHC (31.0-37.0) g/dL RDW (11.5-15.5) % Plt Count (150-450) k/uL MPV Neutrophils % % Lymphocytes % % Monocytes % % Eosinophils % % Basophils % % Neutrophils # (1.3-7.7) k/uL Lymphocytes # (1.0-4.8) k/uL Monocytes # (0-1.0) k/uL Eosinophils # (0-0.7) k/uL Basophils # (0-0.2) k/uL PT (9.0-12.0) sec INR (<1.2) APTT (22.0-30.0) sec D-Dimer (<0.60) mg/L FEU Sodium (137-145) mmol/L Potassium (3.5-5.1) mmol/L Chloride (98-107) mmol/L Carbon Dioxide (22-30) mmol/L Anion Gap mmol/L BUN (9-20) mg/dL Creatinine (0.66-1.25) mg/dL Est GFR (CKD-EPI)AfAm (>60 ml/min/1.73 sqM) Est GFR (CKD-EPI)NonAf (>60 ml/min/1.73 sqM) Glucose (74-99) mg/dL Calcium (8.4-10.2) mg/dL Total Bilirubin (0.2-1.3) mg/dL AST (17-59) U/L ALT (4-49) U/L Alkaline Phosphatase (38-126) U/L Troponin I <0.012 (0.000-0.034) ng/mL Total Protein (6.3-8.2) g/dL Albumin (3.5-5.0) g/dL Disposition Clinical Impression: Pain of left calf Disposition: HOME SELF-CARE Condition: Stable Instructions (If sedation given, give patient instructions): Leg Pain (ED) Additional Instructions: follow-up with the clinical safety specialist. Return to emergency department if sym ptoms worsen. Is patient prescribed a controlled substance at d/c from ED?: No Referrals: [facility],Clinic [Primary Care Provider] - 1-2 days Time of Disposition: 21:03
== END 2021-01-13 21:14 | disposition home or self-care (01) ==
LOC: EC 19:14
DX: M79.662 Pain in left lower leg (principal); F17.200 Nicotine dependence, unspecified, uncomplicated; Z79.899 Other long term (current) drug therapy; Z96.642 Presence of left artificial hip joint
CPT/HCPCS: 36415; 80053; 84484; 85025; 85379; 85610; 85730; 93005; 99284

== ENCOUNTER 2022-03-26 01:45 | Emergency (ER) | payer OTHER ==
[2022-03-26 01:54] VITALS: RESP 18; TEMP 98
--- NOTE | 2022-03-26 03:17 | ED ---
General Adult HPI - General Chief complaint: Headache Stated complaint: Palpitations, nausea Time Seen by Provider: 03/26/22 02:53 Source: patient Mode of arrival: ambulatory Limitations: no limitations - History of Present Illness Initial comments: This patient is 36-year-old man who presents to have evaluation for a constellation of symptoms that came on tonight. The patient states he was awakened by pounding sensation in his chest and head. He indicates that there was some epigastric and substernal chest pain. He also was having headache. No neurologic symptoms. -: hour(s) Location: head, chest Quality: aching Consistency: now resolved Improves with: none Worsens with: none Treatments Prior to Arrival: none - Related Data Home Medications Medication Instructions Recorded Confirmed Cetirizine HCl [Zyrtec] 10 mg PO DAILY 01/13/18 01/31/18 Naproxen 500 mg PO BID PRN 01/13/18 01/31/18 Ranitidine HCl 150 mg PO BID PRN 01/13/18 01/30/18 Zolpidem [Ambien] 10 mg PO HS PRN 01/13/18 01/30/18 Allergies Allergy/AdvReac Type Severity Reaction Status Date / Time No Known Allergies Allergy Verified 03/26/22 01:55 Review of Systems ROS Statement: Those systems with pertinent positive or pertinent negative responses have been documented in the HPI. ROS Other: All systems not noted in ROS Statement are negative. 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 and currently has a holter monitor on, heart ablation History of Any Multi-Drug Resistant Organisms: None Reported Past Surgical History: Appendectomy, Orthopedic Surgery, Tonsillectomy Additional Past Surgical History / Comment(s): 2 left hip surgery, left shoulder, eye surgery Past Anesthesia/Blood Transfusion Reactions: No Reported Reaction Past Psychological History: Anxiety, Depression, PTSD Smoking Status: Current every day smoker Past Alcohol Use History: Rare Past Drug Use History: None Reported General Exam Limitations: no limitations General appearance: alert, in no apparent distress Head exam: Present: atraumatic, normocephalic Eye exam: Present: normal appearance. Absent: scleral icterus, conjunctival injection Neck exam: Present: normal inspection, full ROM Respiratory exam: Present: normal lung sounds bilaterally. Absent: respiratory distress, wheezes, rales, rhonchi, stridor Cardiovascular Exam: Present: regular rate, normal rhythm, normal heart sounds. Absent: systolic murmur, diastolic murmur, rubs, gallop GI/Abdominal exam: Present: soft. Absent: distended, tenderness, guarding, rebound, rigid, mass Extremities exam: Present: normal inspection, normal capillary refill. Absent: pedal edema, calf tenderness Back exam: Present: normal inspection. Absent: CVA tenderness (R), CVA tenderne ss (L) Neurological exam: Present: alert Skin exam: Present: warm, dry, intact, normal color. Absent: rash Course Vital Signs 03/26/22 03/26/22 03/26/22 01:52 03:07 05:04 Temperature 98 F Pulse Rate 75 93 60 Respiratory 18 18 18 Rate Blood Pressure 117/69 116/69 107/63 O2 Sat by Pulse 98 98 Oximetry EKG Findings - EKG Results: EKG: interpreted by KENNY TRINH, sinus rhythm (Rate 72 bpm), normal axis, normal QRS, normal ST/T - [place], Pacemaker, Normal: Normal tracing: normal tracing Medical Decision Making - Lab Data Result diagrams: 03/26/22 03:20 03/26/22 03:20 Lab Results 03/26/22 03/26/22 03/26/22 Range/Units 03:20 03:20 03:20 WBC 12.9 H (3.8-10.6) k/uL RBC 4.96 (4.30-5.90) m/uL Hgb 14.6 (13.0-17.5) gm/dL Hct 45.8 (39.0-53.0) % MCV 92.2 (80.0-100.0) fL MCH 29.5 (25.0-35.0) pg MCHC 31.9 (31.0-37.0) g/dL RDW 13.4 (11.5-15.5) % Plt Count 333 (150-450) k/uL MPV 7.5 Neutrophils % 71 % Lymphocytes % 20 % Monocytes % 5 % Eosinophils % 1 % Basophils % 1 % Neutrophils # 9.2 H (1.3-7.7) k/uL Lymphocytes # 2.5 (1.0-4.8) k/uL Monocytes # 0.7 (0-1.0) k/uL Eosinophils # 0.2 (0-0.7) k/uL Basophils # 0.2 (0-0.2) k/uL Sodium 138 (137-145) mmol/L Potassium 3.6 (3.5-5.1) mmol/L Chloride 103 (98-107) mmol/L Carbon Dioxide 29 (22-30) mmol/L Anion Gap 6 mmol/L BUN 8 L (9-20) mg/dL Creatinine 0.76 (0.66-1.25) mg/dL Est GFR (CKD-EPI)AfAm >90 (>60 ml/min/1.73 sqM) Est GFR (CKD-EPI)NonAf >90 (>60 ml/min/1.73 sqM) Glucose 105 H (74-99) mg/dL Calcium 9.1 (8.4-10.2) mg/dL Magnesium 2.2 (1.6-2.3) mg/dL Total Bilirubin 0.6 (0.2-1.3) mg/dL AST 14 L (17-59) U/L ALT 9 (4-49) U/L Alkaline Phosphatase 44 (38-126) U/L Troponin I <0.012 (0.000-0.034) ng/mL Total Protein 7.2 (6.3-8.2) g/dL Albumin 4.3 (3.5-5.0) g/dL Disposition Clinical Impression: Chest pain Disposition: HOME SELF-CARE Condition: Good Instructions (If sedation given, give patient instructions): Chest Pain (ED) Is patient prescribed a controlled substance at d/c from ED?: No Referrals: [facility],Clinic [Primary Care Provider] - 1-2 days
[2022-03-26 03:41] LABS: Basophils # (A) 0.2 k/uL (0-0.2); Basophils % (A) 1 %; Eosinophils # (A) 0.2 k/uL (0-0.7); Eosinophils % (A) 1 %; HCT 45.8 % (39.0-53.0); HGB 14.6 gm/dL (13.0-17.5); Lymphocytes # (A) 2.5 k/uL (1.0-4.8); Lymphocytes % (A) 20 %; MCH 29.5 pg (25.0-35.0); MCHC 31.9 g/dL (31.0-37.0); MCV 92.2 fL (80.0-100.0); Mean Platelet Volume 7.5; Monocytes # (A) 0.7 k/uL (0-1.0); Monocytes % (A) 5 %; Neutrophils # (A) 9.2 k/uL (1.3-7.7); Neutrophils % (A) 71 %; Platelet Count 333 k/uL (150-450); RBC 4.96 m/uL (4.30-5.90); RDW 13.4 % (11.5-15.5); WBC 12.9 k/uL (3.8-10.6)
[2022-03-26 03:53] LABS: ALT 9 U/L (4-49); AST 14 U/L (17-59); African American GFR (CKD) >90 (>60 ml/min/1.73 sqM); Albumin 4.3 g/dL (3.5-5.0); Alkaline Phosphatase 44 U/L (38-126); Anion Gap 6 mmol/L; Blood Urea Nitrogen 8 mg/dL (9-20); Calcium 9.1 mg/dL (8.4-10.2); Carbon Dioxide 29 mmol/L (22-30); Chloride 103 mmol/L (98-107); Glucose 105 mg/dL (74-99); Magnesium 2.2 mg/dL (1.6-2.3); Non-African American GFR(CKD) >90 (>60 ml/min/1.73 sqM); Potassium 3.6 mmol/L (3.5-5.1); Sodium 138 mmol/L (137-145); Total Bilirubin 0.6 mg/dL (0.2-1.3); Total Protein 7.2 g/dL (6.3-8.2)
--- NOTE | 2022-03-26 04:14 | XR ---
EXAMINATION TYPE: XR chest 2V DATE OF EXAM: 03/26/2022 COMPARISON: 01/30/2018 HISTORY: Chest pain TECHNIQUE: 2 views FINDINGS: Heart is normal. Lungs are clear of infiltrate. No heart failure. There are chest leads. Th ere are no hilar masses. Bony thorax is intact. IMPRESSION: Normal chest. No change.
[2022-03-26 05:05] VITALS: BP 107/63; PULSE 60
== END 2022-03-26 05:26 | disposition home or self-care (01) ==
LOC: EC 01:45
DX: R07.89 Other chest pain (principal); R51.9 Headache, unspecified; R00.2 Palpitations; J44.9 Chronic obstructive pulmonary disease, unspecified; F17.200 Nicotine dependence, unspecified, uncomplicated
CPT/HCPCS: 36415; 71046; 80053; 83735; 84484; 85025; 93005; 99285

== ENCOUNTER 2022-12-13 12:33 | Emergency (ER) | payer OTHER ==
[2022-12-13 12:38] VITALS: PULSE 79; TEMP 97.3
--- NOTE | 2022-12-13 13:16 | ED ---
General Adult HPI - General Chief complaint: Extremity Problem,Nontraumatic Stated complaint: lt hip pain Time Seen by Provider: 12/13/22 12:46 Source: patient, RN notes reviewed Mode of arrival: ambulatory Limitations: no limitations - History of Present Illness Initial comments: Patient is a pleasant 37-year-old male presenting to the emergency department with concerns with left inguinal pain. Onset of symptoms was a couple of days ago. Symptoms are somewhat worse since that time. Patient does have history of previous left hip surgery 2 and previous dislocation. No trauma at this time. No fever. No skin redness. No testicle pain. Patient did go to [place] who requested him get an ultrasound with concern for hernia. - Related Data Home Medications Medication Instructions Recorded Confirmed Cetirizine HCl [Zyrtec] 10 mg PO DAILY 01/13/18 12/13/22 Butalb/Acetaminophen/Caffeine 1 cap PO Q4H PRN 12/13/22 12/13/22 [Fioricet 50-325-40] Ergocalciferol [Vitamin D2 (1250 1,250 mcg PO FR 12/13/22 12/13/22 Mcg = 48623 Iu)] Fluticasone Nasal [place] [Flonase 1 spray EA NOSTRIL BID 12/13/22 12/13/22 Nasal [place]] Fluticasone Propion/Salmeterol 1 puff INHALATION RT-BID 12/13/22 12/13/22 [Advair 250-50 Diskus] Levalbuterol Hfa Inhaler [Xopenex 1 puff INHALATION RT-Q4H PRN 12/13/22 12/13/22 Hfa Inhaler] Montelukast [Singulair] 10 mg PO DAILY 12/13/22 12/13/22 Pantoprazole Sodium [Protonix] 40 mg PO BID 12/13/22 12/13/22 SUMAtriptan succinate [Imitrex] 100 mg PO DAILY PRN 12/13/22 12/13/22 Topiramate 50 mg PO HS 12/13/22 12/13/22 buPROPion HCL [Wellbutrin SR] 150 mg PO BID 12/13/22 12/13/22 Previous Rx's Medication Instructions Recorded Cephalexin [Keflex] 500 mg PO TID #21 cap 12/13/22 Allergies Allergy/AdvReac Type Severity Reaction Status Date / Time No Known Allergies Allergy Verified 12/13/22 13:50 Review of Systems ROS Statement: Those systems with pertinent positive or pertinent negative responses have been documented in the HPI. ROS Other: All systems not noted in ROS Statement are negative. Constitutional: Denies: fever Eyes: Denies: eye pain ENT: Denies: ear pain Respiratory: Denies: cough Cardiovascular: Denies: chest pain Endocrine: Denies: fatigue Gastrointestinal: Denies: abdominal pain Genitourinary: Reports: as per HPI. Denies: dysuria, testicular pain, testicular mass Musculoskeletal: Denies: back pain Skin: Denies: rash Neurological: Denies: weakness Past Medical History Past Medical History: COPD Additional Past Medical History / Comment(s): undiagnosed heart issues, pvc's,heart ablation History of Any Multi-Drug Resistant Organisms: None Reported Past Surgical History: Appendectomy, Orthopedic Surgery, Tonsillectomy Additional Past Surgical History / Comment(s): 2 left hip surgery, left shoulder, eye surgery Past Anesthesia/Blood Transfusion Reactions: No Reported Reaction Past Psychological History: Anxiety, Depression, PTSD Smoking Status: Current every day smoker Past Alcohol Use History: Rare Past Drug Use History: None Reported General Exam Limitations: no limitations General appearance: alert, in no apparent distress Head exam: Present: normocephalic Eye exam: Present: normal appearance Neck exam: Present: normal inspection Respiratory exam: Present: normal lung sounds bilaterally Cardiovascular Exam: Present: regular rate, normal rhythm Expanded Peripheral pulses: 2+: Femoral (L), Posterior Tibialis (R), Posterior Tibialis (L), Dorsalis Pedis (R), Dorsalis Pedis (L) GI/Abdominal exam: Present: soft. Absent: distended, tenderness exam: Present: other (Left inguinal lymphadenopathy with tenderness). Absent: testicular tenderness, scrotal swelling Extremities exam: Present: normal inspection. Absent: pedal edema, calf tenderness Neurological exam: Present: alert Psychiatric exam: Present: normal affect, normal mood Skin exam: Present: normal color. Absent: erythema Course Vital Signs 12/13/22 12:34 Temperature 97.3 F L Pulse Rate 79 Respiratory 18 Rate Blood Pressure 108/71 O2 Sat by Pulse 99 Oximetry Medical Decision Making - Medical Decision Making Was pt. sent in by a medical professional or institution (, PA, OCCUPATIONAL MEDICINE PHYSICIAN, urgent care, hospital, or alf...) When possible be specific @ -Patient was sent in by his primary clinic Did you speak to anyone other than the patient for history (EMS, parent, family, police, friend...)? What history was obtained from this source @ -No Did you review nursing and triage notes (agree or disagree)? Why? @ -I reviewed and agree with nursing and triage notes Were old charts reviewed (outside hosp., previous admission, EMS record, old EKG, old radiological studies, urgent care reports/EKG's, alf records)? Report findings @ -No old charts were reviewed Differential Diagnosis (chest pain, altered mental status, abdominal pain women, abdominal pain men, vaginal bleeding, weakness, fever, dyspnea, syncope, headache, dizziness, GI bleed, back pain, seizure, CVA, palpatations, mental health)? @ -Differential Abdominal Pain Men: Appendicitis, cholecystitis, diverticulosis, ischemic bowel, pancreatitis, hepatitis, UTI, gastroenteritis, AAA, incarcerated hernia, bowel obstruction, constipation, inflammatory bowel, hepatitis, peptic ulcer disease, splenic infarction, perforated viscus, testicular torsion, this is not meant to be an all-inclusive list EKG interpreted by me (3pts min.). @ -As above X-rays interpreted by me (1pt min.). @ -None done CT interpreted by me (1pt min.). @ -None done U/S interpreted by me (1pt. min.). @ -Report reviewed What testing was considered but not performed or refused? (CT, X-rays, U/S, labs)? Why? @ -Considered urinalysis however patient unable to provide specimen What meds were considered but not given or refused? Why? @ -None Did you discuss the management of the patient with other professionals (professionals i.e. , PA, OCCUPATIONAL MEDICINE PHYSICIAN, lab, RT, psych nurse, social security assessor, financial operations analyst, teacher, parking enforcement officer, casework specialist)? Give summary @ -No Was smoking cessation discussed for >3mins.? @ -No Was critical care preformed (if so, how long)? @ -No Were there social determinants of health that impacted care today? How? (Homelessness, low income, unemployed, alcoholism, drug addiction, transportation, low edu. Level, literacy, decrease access to med. care, prison, rehab)? @ -No Was there de-escalation of care discussed even if they declined (Discuss DNR or withdrawal of care, Hospice)? DNR status @ -No What co-morbidities impacted this encounter? (DM, HTN, Smoking, COPD, CAD, Cancer, CVA, ARF, Chemo, Hep., AIDS, mental health diagnosis, sleep apnea, morbid obesity)? @ -None Was patient admitted / discharged? Hospital course, mention meds given and route, prescriptions, significant lab abnormalities, going to OR and other pertinent info. @ -Patient reevaluated and resting comfortably in bed. Patient is updated on results and plan. Patient is happy to be discharged. Undiagnosed new problem with uncertain prognosis? @ -No Drug Therapy requiring intensive monitoring for toxicity (Heparin, Nitro, Insulin, Cardizem)? @ -No Were any procedures done? @ -No Diagnosis/symptom? @ -Lymphadenopathy Acute, or Chronic, or Acute on Chronic? @ -Acute Uncomplicated (without systemic symptoms) or Complicated (systemic symptoms)? @ -Uncomplicated Side effects of treatment? @ -No Exacerbation, Progression, or Severe Exacerbation? @ -No Poses a threat to life or bodily function? How? (Chest pain, [place], [place], pneumonia, PE, COPD, DKA, ARF, appy, cholecystitis, CVA, Diverticulitis, Homicidal, Suicidal, threat to staff... and all critical care pts) @ -No - Radiology Data Radiology results: report reviewed Disposition Clinical Impression: Inguinal lymphadenopathy Disposition: HOME SELF-CARE Condition: Stable Instructions (If sedation given, give patient instructions): Lymphadenopathy (ED) Additional Instructions: Prescription sent to pharmacy. Please do follow-up to primary care physician in the next couple days for recheck. If symptoms continue you will need further evaluation. Return for increased pain, swelling, redness, fever, worsening or changing symptoms or other concerns. Prescriptions: Cephalexin [Keflex] 500 mg PO TID #21 cap Is patient prescribed a controlled substance at d/c from ED?: No Referrals: [facility],Clinic [Primary Care Provider] - 1-2 days Time of Disposition: 14:24
--- NOTE | 2022-12-13 13:48 | US ---
EXAMINATION TYPE: US groin LT DATE OF EXAM: 12/13/2022 COMPARISON: NONE CLINICAL HISTORY: pain. TECHNIQUE: Multiple grayscale and color ultrasound images of the left groin were obtained. FINDINGS: Left groin assessed for hernia. No ultrasound evidence of hernia. At patients palpable there are some prominent lymph nodes largest measuring 1.6 x 0.7 x 1.1cm IMPRESSION: 1. No evidence for hernia. 2. Prominent likely reactive left groin lymph nodes.
--- NOTE | 2022-12-13 13:49 | US ---
EXAMINATION TYPE: US scrotum with doppler. Grayscale and color Doppler Duplex imaging performed of saroj wagner scrotum. DATE OF EXAM: 12/13/2022 COMPARISON: NONE CLINICAL HISTORY: pain. EXAM MEASUREMENTS: TESTICLES: Right Testicle: 4.7 x 1.8 x 2.5 cm Left Testicle: 4.3 x 1.8 x 2.6 cm EPIDIDYMIS HEAD: Right Epididymis: 0.8 cm Left Epididymis: 0.6 cm Doppler performed to assess for testicular vascularity; good bilateral color flow and waveforms are s een. There is no evidence of testicular torsion. Presence of hydroceles: Right 0.8 x 0.8 x 0.7 Left: 2.0 x 0.6 x 2.9cm . There is some debris demonst rated within the left hydrocele. Presence of varicoceles: no IMPRESSION: 1. No evidence for testicular torsion or mass. 2. Bilateral hydroceles with left greater than right.
[2022-12-13 15:29] VITALS: BP 105/74; RESP 15
== END 2022-12-13 15:28 | disposition home or self-care (01) ==
LOC: EC 12:33
DX: R59.1 Generalized enlarged lymph nodes (principal); J44.9 Chronic obstructive pulmonary disease, unspecified; F41.9 Anxiety disorder, unspecified; F32.A Depression, unspecified; F17.200 Nicotine dependence, unspecified, uncomplicated; Z79.51 Long term (current) use of inhaled steroids; Z79.899 Other long term (current) drug therapy
CPT/HCPCS: 76870; 93975; 99283

== ENCOUNTER 2023-04-09 03:22 | Emergency (ER) | payer OTHER ==
[2023-04-09 03:31] VITALS: TEMP 98.6
[2023-04-09 03:50] LABS: Basophils # (A) 0.1 k/uL (0-0.2); Basophils % (A) 1 %; Eosinophils # (A) 0.3 k/uL (0-0.7); Eosinophils % (A) 4 %; HCT 44.7 % (39.0-53.0); HGB 15.1 gm/dL (13.0-17.5); Lymphocytes # (A) 2.1 k/uL (1.0-4.8); Lymphocytes % (A) 28 %; MCH 29.6 pg (25.0-35.0); MCHC 33.9 g/dL (31.0-37.0); MCV 87.3 fL (80.0-100.0); Mean Platelet Volume 8.1; Monocytes # (A) 0.5 k/uL (0-1.0); Monocytes % (A) 6 %; Neutrophils # (A) 4.4 k/uL (1.3-7.7); Neutrophils % (A) 58 %; Platelet Count 324 k/uL (150-450); RBC 5.12 m/uL (4.30-5.90); RDW 14.2 % (11.5-15.5); WBC 7.5 k/uL (3.8-10.6)
[2023-04-09 04:01] LABS: ALT 13 U/L (4-49); AST 18 U/L (17-59); African American GFR (CKD) >90 (>60 ml/min/1.73 sqM); Albumin 4.6 g/dL (3.5-5.0); Alkaline Phosphatase 46 U/L (38-126); Anion Gap 9 mmol/L; Blood Urea Nitrogen 4 mg/dL (9-20); Calcium 9.3 mg/dL (8.4-10.2); Carbon Dioxide 25 mmol/L (22-30); Chloride 103 mmol/L (98-107); Glucose 88 mg/dL (74-99); Magnesium 2.1 mg/dL (1.6-2.3); Non-African American GFR(CKD) >90 (>60 ml/min/1.73 sqM); Potassium 4.3 mmol/L (3.5-5.1); Sodium 137 mmol/L (137-145); Total Bilirubin 0.6 mg/dL (0.2-1.3); Total Protein 7.2 g/dL (6.3-8.2)
[2023-04-09 04:06] LABS: Partial Thromboplastin Time 25.6 sec (22.0-30.0); Prothrombin Time 10.2 sec (9.0-12.0)
--- NOTE | 2023-04-09 05:10 | ED ---
General Adult HPI - General Chief complaint: Chest Pain Stated complaint: Chest Pain, Upper Back pain Time Seen by Provider: 04/09/23 03:40 Source: patient Mode of arrival: ambulatory Limitations: no limitations - History of Present Illness Initial comments: This is a 37-year-old male with a past medical history including previously cardiac ablation status post ectopic beats presents emergency department for chest pain and mid back pain between his shoulder blades. The patient stated that this woke him up out of sleep several hours ago and has been persistent. The patient stated that he has never had symptoms like this before. The patient did report that he sees the [facility] for all of [facility] medical rooms and stated that he was told "I have a enlarged aorta and half of my heart is enlarged well." The patient was unable to give me any details about this. The patient stated he came to the emergency department today because of the consistency of his pain. The patient denied any nausea, vomiting as well as any fevers and chills. The patient also denied any diaphoresis. - Related Data Home Medications Medication Instructions Recorded Confirmed Cetirizine HCl [Zyrtec] 10 mg PO DAILY 01/13/18 12/13/22 Butalb/Acetaminophen/Caffeine 1 cap PO Q4H PRN 12/13/22 12/13/22 [Fioricet 50-325-40] Ergocalciferol [Vitamin D2 (1250 1,250 mcg PO FR 12/13/22 12/13/22 Mcg = 74086 Iu)] Fluticasone Nasal [address] [Flonase 1 spray EA NOSTRIL BID 12/13/22 12/13/[address]] Fluticasone Propion/Salmeterol 1 puff INHALATION RT-BID 12/13/22 12/13/22 [Advair 250-50 Diskus] Levalbuterol Hfa Inhaler [Xopenex 1 puff INHALATION RT-Q4H PRN 12/13/22 12/13/22 Hfa Inhaler] Montelukast [Singulair] 10 mg PO DAILY 12/13/22 12/13/22 Pantoprazole Sodium [Protonix] 40 mg PO BID 12/13/22 12/13/22 SUMAtriptan succinate [Imitrex] 100 mg PO DAILY PRN 12/13/22 12/13/22 Topiramate 50 mg PO HS 12/13/22 12/13/22 buPROPion HCL [Wellbutrin SR] 150 mg PO BID 12/13/22 12/13/22 Previous Rx's Medication Instructions Recorded Cephalexin [Keflex] 500 mg PO TID #21 cap 12/13/22 Naproxen [EC-Naproxen] 500 mg PO BID #30 tab 04/09/23 Allergies Allergy/AdvReac Type Severity Reaction Status Date / Time No Known Allergies Allergy Verified 12/13/22 13:50 Review of Systems ROS Statement: Those systems with pertinent positive or pertinent negative responses have been documented in the HPI. ROS Other: All systems not noted in ROS Statement are negative. Past Medical History Past Medical History: COPD, GERD/Reflux Additional Past Medical History / Comment(s): undiagnosed heart issues, pvc's,heart ablation History of Any Multi-Drug Resistant Organisms: None Reported Past Surgical History: Appendectomy, Orthopedic Surgery, Tonsillectomy Additional Past Surgical History / Comment(s): 2 left hip surgery, left shoulder, eye surgery Past Anesthesia/Blood Transfusion Reactions: No Reported Reaction Past Psychological History: Anxiety, Depression, PTSD Smoking Status: Current every day smoker Past Alcohol Use History: Rare Past Drug Use History: None Reported General Exam Limitations: no limitations General appearance: alert, in no apparent distress Head exam: Present: atraumatic, normocephalic, normal inspection Eye exam: Present: normal appearance, PERRL Pupils: Present: normal accommodation ENT exam: Present: normal exam, normal oropharynx, mucous membranes moist Neck exam: Present: normal inspection, full ROM Respiratory exam: Present: normal lung sounds bilaterally Cardiovascular Exam: Present: regular rate, normal rhythm, normal heart sounds GI/Abdominal exam: Present: soft, normal bowel sounds Extremities exam: Present: normal inspection, full ROM Back exam: Present: normal inspection, full ROM Neurological exam: Present: alert, oriented X3, CN II-XII intact Psychiatric exam: Present: normal affect, normal mood Skin exam: Present: warm, dry Course Vital Signs 04/09/23 04/09/23 04/09/23 03:25 05:17 06:00 Temperature 98.6 F Pulse Rate 70 62 54 L Respiratory 16 16 15 Rate Blood Pressure 109/69 111/71 111/71 O2 Sat by Pulse 98 98 Oximetry 04/09/23 06:34 Temperature Pulse Rate 59 L Respiratory 16 Rate Blood Pressure 108/67 O2 Sat by Pulse 99 Oximetry EKG Findings - EKG Comments: EKG Findings:: An EKG was obtained and was interpreted by myself showing a rate of 67, HI interval 159, QRS duration 104 and QTC of 407. This EKG showed normal sinus rhythm with no ST segment elevation or depression noted. Medical Decision Making - Medical Decision Making Was pt. sent in by a medical professional or institution (, PA, BABBITTER, urgent care, hospital, or group home...) When possible be specific @ -No Did you speak to anyone other than the patient for history (EMS, parent, family, police, friend...)? What history was obtained from this source @ -No Did you review nursing and triage notes (agree or disagree)? Why? @ -I reviewed and agree with nursing and triage notes Were old charts reviewed (outside hosp., previous admission, EMS record, old EKG, old radiological studies, urgent care reports/EKG's, group home records)? Report findings @ -No old charts were reviewed Differential Diagnosis (chest pain, altered mental status, abdominal pain women, abdominal pain men, vaginal bleeding, weakness, fever, dyspnea, syncope, headache, dizziness, GI bleed, back pain, seizure, CVA, palpatations, mental health)? @ -ACS, pneumothorax, pneumonia, PE, aortic dissection EKG interpreted by me (3pts min.). @ -As above X-rays interpreted by me (1pt min.). @ -Chest x-ray was obtained and was interpreted by myself showing no acute process. CT interpreted by me (1pt min.). @ -CTA of the chest, abdomen and pelvis was obtained and was interpreted by myself showing no dissection or abdominal aortic aneurysm. There is no acute intra-abdominal process. U/S interpreted by me (1pt. min.). @ -None done What testing was considered but not performed or refused? (CT, X-rays, U/S, labs)? Why? @ -None What meds were considered but not given or refused? Why? @ -None Did you discuss the management of the patient with other professionals (sanket pearce i.eBrittny Trean, JOEL, BABBITTER, lab, RT, psych nurse, social service assistant, immigration lawyer, teacher, signals officer, case consultant)? Give summary @ -No Was smoking cessation discussed for >3mins.? @ -No Was critical care preformed (if so, how long)? @ -No Were there social determinants of health that impacted care today? How? (Homelessness, low income, unemployed, alcoholism, drug addiction, transportation, low edu. Level, literacy, decrease access to med. care, skilled nursing, rehab)? @ -No Was there de-escalation of care discussed even if they declined (Discuss DNR or withdrawal of care, Hospice)? DNR status @ -No What co-morbidities impacted this encounter? (DM, HTN, Smoking, COPD, CAD, Cancer, CVA, ARF, Chemo, Hep., AIDS, mental health diagnosis, sleep apnea, morbid obesity)? @ -None Was patient admitted / discharged? Hospital course, mention meds given and route, prescriptions, significant lab abnormalities, going to OR and other pertinent info. @ -The patient was seen and evaluated in the emergency department. Physical exam, the patient was resting in bed without any acute distress. Vital signs admission were stable. Due to the nature the patient's complaints in the setting of a reported past medical history including a "enlarged aorta" in addition to his symptoms of chest pain radiating to his back and between his shoulder blades, full imaging and labs were obtained. All laboratory workup was within normal limits. Chest x-ray was negative, CT of the chest, abdomen and pelvis was negative. The patient did continue to remain stable on reevaluation and denied any further chest pain but stated that he had upper back painbetween his shoulder blades. The patient was given Toradol for his symptoms and was advised to follow-up with cardiology as an outpatient. The patient was offered observation to be seen by cardiology here but he did state that he would [place] go [place] and see a agility instructor as an outpatient. The patient was also advised report back to the emergency department if he had worsening pain or symptoms. The patient was agreeable to this and all discretions were answered. The patient was discharged home in stable condition. Undiagnosed new problem with uncertain prognosis? @ -No Drug Therapy requiring intensive monitoring for toxicity (Heparin, Nitro, Insulin, Cardizem)? @ -No Were any procedures done? @ -No Diagnosis/symptom? @ -Upper back pain, NOS Acute, or Chronic, or Acute on Chronic? @ -Acute Uncomplicated (without systemic symptoms) or Complicated (systemic symptoms)? @ -Uncomplicated Side effects of treatment? @ -No Exacerbation, Progression, or Severe Exacerbation? @ -No Poses a threat to life or bodily function? How? (Chest pain, [place], [place], pneumonia, PE, COPD, DKA, ARF, appy, cholecystitis, CVA, Diverticulitis, Homicidal, Suicidal, threat to staff... and all critical care pts) @ -No - Lab Data Result diagrams: 04/09/23 03:40 04/09/23 03:40 Lab Results 04/09/23 04/09/23 04/09/23 Range/Units 03:40 03:40 03:40 WBC 7.5 (3.8-10.6) k/uL RBC 5.12 (4.30-5.90) m/uL Hgb 15.1 (13.0-17.5) gm/dL Hct 44.7 (39.0-53.0) % MCV 87.3 (80.0-100.0) fL MCH 29.6 (25.0-35.0) pg MCHC 33.9 (31.0-37.0) g/dL RDW 14.2 (11.5-15.5) % Plt Count 324 (150-450) k/uL MPV 8.1 Neutrophils % 58 % Lymphocytes % 28 % Monocytes % 6 % Eosinophils % 4 % Basophils % 1 % Neutrophils # 4.4 (1.3-7.7) k/uL Lymphocytes # 2.1 (1.0-4.8) k/uL Monocytes # 0.5 (0-1.0) k/uL Eosinophils # 0.3 (0-0.7) k/uL Basophils # 0.1 (0-0.2) k/uL PT 10.2 (9.0-12.0) sec INR 1.0 (<1.2) APTT 25.6 (22.0-30.0) sec D-Dimer (<0.60) mg/L FEU Sodium 137 (137-145) mmol/L Potassium 4.3 (3.5-5.1) mmol/L Chloride 103 (98-107) mmol/L Carbon Dioxide 25 (22-30) mmol/L Anion Gap 9 mmol/L BUN 4 L (9-20) mg/dL Creatinine 0.77 (0.66-1.25) mg/dL Est GFR (CKD-EPI)AfAm >90 (>60 ml/min/1.73 sqM) Est GFR (CKD-EPI)NonAf >90 (>60 ml/min/1.73 sqM) Glucose 88 (74-99) mg/dL Calcium 9.3 (8.4-10.2) mg/dL Magnesium 2.1 (1.6-2.3) mg/dL Total Bilirubin 0.6 (0.2-1.3) mg/dL AST 18 (17-59) U/L ALT 13 (4-49) U/L Alkaline Phosphatase 46 (38-126) U/L Troponin I (0.000-0.034) ng/mL Total Protein 7.2 (6.3-8.2) g/dL Albumin 4.6 (3.5-5.0) g/dL 04/09/23 04/09/23 Range/Units 03:40 03:40 WBC (3.8-10.6) k/uL RBC (4.30-5.90) m/uL Hgb (13.0-17.5) gm/dL Hct (39.0-53.0) % MCV (80.0-100.0) fL MCH (25.0-35.0) pg MCHC (31.0-37.0) g/dL RDW (11.5-15.5) % Plt Count (150-450) k/uL MPV Neutrophils % % Lymphocytes % % Monocytes % % Eosinophils % % Basophils % % Neutrophils # (1.3-7.7) k/uL Lymphocytes # (1.0-4.8) k/uL Monocytes # (0-1.0) k/uL Eosinophils # (0-0.7) k/uL Basophils # (0-0.2) k/uL PT (9.0-12.0) sec INR (<1.2) APTT (22.0-30.0) sec D-Dimer 0.19 (<0.60) mg/L FEU Sodium (137-145) mmol/L Potassium (3.5-5.1) mmol/L Chloride (98-107) mmol/L Carbon Dioxide (22-30) mmol/L Anion Gap mmol/L BUN (9-20) mg/dL Creatinine (0.66-1.25) mg/dL Est GFR (CKD-EPI)AfAm (>60 ml/min/1.73 sqM) Est GFR (CKD-EPI)NonAf (>60 ml/min/1.73 sqM) Glucose (74-99) mg/dL Calcium (8.4-10.2) mg/dL Magnesium (1.6-2.3) mg/dL Total Bilirubin (0.2-1.3) mg/dL AST (17-59) U/L ALT (4-49) U/L Alkaline Phosphatase (38-126) U/L Troponin I <0.012 (0.000-0.034) ng/mL Total Protein (6.3-8.2) g/dL Albumin (3.5-5.0) g/dL Disposition Clinical Impression: Upper back pain Disposition: HOME SELF-CARE Condition: Stable Instructions (If sedation given, give patient instructions): Back Pain (ED) Prescriptions: Naproxen [EC-Naproxen] 500 mg PO BID #30 tab Is patient prescribed a controlled substance at d/c from ED?: No Referrals: [facility],Clinic [Primary Care Provider] - 1-2 days Time of Disposition: 06:30
[2023-04-09 06:35] VITALS: BP 108/67; PULSE 59; RESP 16
--- NOTE | 2023-04-09 06:36 | XR ---
EXAM: XR Chest, 2 Views CLINICAL HISTORY: ITS.REASON XR Reason: Chest Pain TECHNIQUE: Frontal and lateral views of the chest. COMPARISON: 01/06/2023 FINDINGS: Lungs: Unremarkable. No consolidation. Pleural space: Unremarkable. No pneumothorax. Heart: Unremarkable. No cardiomegaly. Mediastinum: Unremarkable. Bones/joints: Unremarkable. IMPRESSION: Normal chest x-rays.
--- NOTE | 2023-04-09 06:41 | CT ---
EXAM: CT Angiography Chest With Intravenous Contrast CLINICAL HISTORY: ITS.REASON CT Reason: R/o dissection TECHNIQUE: Axial computed tomographic angiography images of the chest with intravenous contrast. CTDI is 23.15 mGy and DLP is 507.7 mGy-cm. This CT exam was performed using one or more of the following dose reduction techniques: automated exposure control, adjustment of the mA and/or kV according to patient size, and/or use of iterative reconstruction technique. MIP reconstructed images were created and reviewed. COMPARISON: No relevant prior studies available. FINDINGS: Pulmonary arteries: Unremarkable. No pulmonary embolism. Aorta: No acute findings. No thoracic aortic aneurysm. Lungs: Unremarkable. No mass. No consolidation. Pleural space: Unremarkable. No significant effusion. No pneumothorax. Heart: Unremarkable. No cardiomegaly. No significant pericardial effusion. No evidence of RV dysfunction. Bones/joints: No acute fracture. No dislocation. Soft tissues: Unremarkable. Lymph nodes: Unremarkable. No enlarged lymph nodes. IMPRESSION: 1. No aortic dissection or thoracic aortic aneurysm. 2. No acute intrathoracic process. EXAM: CT Angiography Abdomen and Pelvis With Intravenous Contrast CLINICAL HISTORY: ITS.REASON CT Reason: R/o dissection TECHNIQUE: Axial computed tomographic angiography images of the abdomen and pelvis with intravenous contrast. CTDI is 23.15 mGy and DLP is 507.7 mGy-cm. This CT exam was performed using one or more of the following dose reduction techniques: automated exposure control, adjustment of the mA and/or kV according to patient size, and/or use of iterative reconstruction technique. MIP reconstructed images were created and reviewed. COMPARISON: No relevant prior studies available. FINDINGS: VASCULATURE: Aorta: No acute findings. No abdominal aortic aneurysm. No dissection. Celiac trunk and mesenteric arteries: No acute findings. No occlusion or significant stenosis. Renal arteries: No acute findings. No occlusion or significant stenosis. Iliac arteries: No acute findings. No occlusion or significant stenosis. Lung bases: Unremarkable. No mass. No consolidation. ABDOMEN: Liver: Unremarkable. No mass. Gallbladder and bile ducts: Unremarkable. No calcified stones. No ductal dilation. Pancreas: Unremarkable. No ductal dilation. No mass. Spleen: Unremarkable. No splenomegaly. Adrenals: Unremarkable. No mass. Kidneys and ureters: Unremarkable. No hydronephrosis. No solid mass. Stomach and bowel: Unremarkable. No obstruction. No mucosal thickening. PELVIS: Appendix: No findings to suggest acute appendicitis. Bladder: Unremarkable. No mass. Reproductive: Unremarkable as visualized. ABDOMEN and PELVIS: Intraperitoneal space: Unremarkable. No significant fluid collection. No free air. Bones/joints: No acute fracture. No dislocation. Soft tissues: Unremarkable. Lymph nodes: Unremarkable. No enlarged lymph nodes. IMPRESSION: 1. No aortic dissection or abdominal aortic aneurysm. 2. No acute intra-abdominal process.
[2023-04-09] MEDS ORDERED: KETOROLAC 15 MG/ML 1 ML VIAL IVP STA (06:51)
== END 2023-04-09 06:59 | disposition home or self-care (01) ==
LOC: EC 03:22
DX: M54.6 Pain in thoracic spine (principal); I51.7 Cardiomegaly; J44.9 Chronic obstructive pulmonary disease, unspecified; K21.9 Gastro-esophageal reflux disease without esophagitis; F41.9 Anxiety disorder, unspecified; F32.A Depression, unspecified; F17.200 Nicotine dependence, unspecified, uncomplicated; Z79.51 Long term (current) use of inhaled steroids; Z79.899 Other long term (current) drug therapy
CPT/HCPCS: 36415; 93005; 85379; 80053; 83735; 84484; 85025; 85610; 85730; 71046; 71275; 74174; 99285; 96374; J1885; Q9967

== ENCOUNTER 2023-08-02 14:27 | Observation (INO) | payer OTHER, MEDICARE ==
--- NOTE | 2023-08-02 15:45 | ED ---
General Adult HPI - General Source: patient, RN notes reviewed Mode of arrival: ambulatory Limitations: no limitations <Cady Gore - Last Filed: 08/02/23 15:44> <Torito Villa - Last Filed: 08/02/23 21:11> - General Chief complaint: Chest Pain Stated complaint: light headedness Time Seen by Provider: 08/02/23 15:44 - History of Present Illness Initial comments: 37-year-old male presents the emergency department dizziness, lightheadedness, chest pain. He describes the chest pain as squeezing that is constant. (Cady Gore) 37 year old male s/p cardiac ablation to the ED with a chief complaint of chest pain. Patient states today, started to experience chest pain in the middle of his chest. Patient states pain is squeezing/pressure-like in sensation and r adiates to his back. States pain worsened with activity. Associated nausea and lightheadedness. Describes lightheadedness as feeling like he is going to fall forward. Denies shortness of breath. No abdominal pain, urinary symptoms or change in bowel habits. No other complaints. (Torito Villa) - Related Data Home Medications Medication Instructions Recorded Confirmed Cetirizine HCl [Zyrtec] 10 mg PO DAILY 01/13/18 12/13/22 Butalb/Acetaminophen/Caffeine 1 cap PO Q4H PRN 12/13/22 12/13/22 [Fioricet 50-325-40] Ergocalciferol [Vitamin D2 (1250 1,250 mcg PO FR 12/13/22 12/13/22 Mcg = 57255 Iu)] Fluticasone Nasal [place] [Flonase 1 spray EA NOSTRIL BID 12/13/22 12/13/22 Nasal [place]] Fluticasone Propion/Salmeterol 1 puff INHALATION RT-BID 12/13/22 12/13/22 [Advair 250-50 Diskus] Levalbuterol Hfa Inhaler [Xopenex 1 puff INHALATION RT-Q4H PRN 12/13/22 12/13/22 Hfa Inhaler] Montelukast [Singulair] 10 mg PO DAILY 12/13/22 12/13/22 Pantoprazole Sodium [Protonix] 40 mg PO BID 12/13/22 12/13/22 SUMAtriptan succinate [Imitrex] 100 mg PO DAILY PRN 12/13/22 12/13/22 Topiramate 50 mg PO HS 12/13/22 12/13/22 buPROPion HCL [Wellbutrin SR] 150 mg PO BID 12/13/22 12/13/22 Previous Rx's Medication Instructions Recorded Cephalexin [Keflex] 500 mg PO TID #21 cap 12/13/22 Naproxen [EC-Naproxen] 500 mg PO BID #30 tab 04/09/23 Allergies Allergy/AdvReac Type Severity Reaction Status Date / Time No Known Allergies Allergy Verified 08/02/23 14:33 Review of Systems ROS Other: All systems not noted in ROS Statement are negative. <Cady Gore - Last Filed: 08/02/23 15:44> ROS Other: All systems not noted in ROS Statement are negative. <Torito Villa - Last Filed: 08/02/23 21:11> ROS Statement: Those systems with pertinent positive or pertinent negative responses have been documented in the HPI. Past Medical History Past Medical History: COPD, GERD/Reflux Additional Past Medical History / Comment(s): undiagnosed heart issues, pv c's,heart ablation History of Any Multi-Drug Resistant Organisms: None Reported Past Surgical History: Appendectomy, Orthopedic Surgery, Tonsillectomy Additional Past Surgical History / Comment(s): 2 left hip surgery, left sh oulder, eye surgery Past Anesthesia/Blood Transfusion Reactions: No Reported Reaction Past Psychological History: Anxiety, Depression, PTSD Smoking Status: Current every day smoker Past Alcohol Use History: Rare Past Drug Use History: None Reported <Cady Gore - Last Filed: 08/02/23 15:44> General Exam Limitations: no limitations <Cady Gore - Last Filed: 08/02/23 15:44> General appearance: alert, in no apparent distress Eye exam: Present: normal appearance Neck exam: Present: normal inspection Respiratory exam: Present: normal lung sounds bilaterally Cardiovascular Exam: Present: regular rate, normal rhythm GI/Abdominal exam: Present: soft Neurological exam: Present: alert, oriented X3 <Torito Villa - Last Filed: 08/02/23 21:11> - General Exam Comments Initial Comments: Visual Physical Exam Vital signs reviewed General: Well-appearing, nontoxic, no acute distress. Head: Normocephalic, atraumatic Eyes: PERRLA, EOMI ENT: Airway patent Chest: Nonlabored breathing Skin: No visual rash, normal skin tone Neuro: Alert and oriented 3 Musculoskeletal: No gross abnormalities I performed the quick note portion of this exam, verbal signature Cady Gore PA-C (Cady Gore) Course Vital Signs 08/02/23 08/02/23 08/02/23 14:30 18:55 20:13 Temperature 98.4 F Pulse Rate 80 64 63 Respiratory 20 18 18 Rate Blood Pressure 104/68 110/67 107/67 O2 Sat by Pulse 98 99 98 Oximetry Medical Decision Making - Lab Data Result diagrams: 08/02/23 16:44 08/02/23 16:44 <Torito Villa - Last Filed: 08/02/23 21:11> - Medical Decision Making Was pt. sent in by a medical professional or institution (JOEL Teran, HOUSEHOLD APPLIANCE MECHANIC, urgent care, hospital, or intermediate...) When possible be specific @ -No Did you speak to anyone other than the patient for history (EMS, parent, family, police, friend...)? What history was obtained from this source @ -No Did you review nursing and triage notes (agree or disagree)? Why? @ -I reviewed and agree with nursing and triage notes Were old charts reviewed (outside hosp., previous admission, EMS record, old EKG, old radiological studies, urgent care reports/EKG's, intermediate records)? Report findings @ -No old charts were reviewed Differential Diagnosis (chest pain, altered mental status, abdominal pain women, abdominal pain men, vaginal bleeding, weakness, fever, dyspnea, syncope, headache, dizziness, GI bleed, back pain, seizure, CVA, palpatations, mental health, musculoskeletal)? @ -Differential Chest Pain: Stable Angina, Unstable Angina, STEMI, NSTEMI Aortic Dissection, Pneumothorax, Musculoskeletal, Esophageal Spasm GERD, Cholecystitis, Pancreatitis, Zoster, this is not meant to be an all-inclusive list. EKG interpreted by me (3pts min.). @ -As above X-rays interpreted by me (1pt min.). @ -Chest x-ray shows no acute process. CT interpreted by me (1pt min.). @ -CTA of the chest shows no evidence of dissection or other acute finding. U/S interpreted by me (1pt. min.). @ -None done What testing was considered but not performed or refused? (CT, X-rays, U/S, labs)? Why? @ -None What meds were considered but not given or refused? Why? @ -None Did you discuss the management of the patient with other professionals (professionals i.e. DrBrittny, PA, HOUSEHOLD APPLIANCE MECHANIC, lab, RT, psych nurse, medical social worker, real estate intern, teacher, planned giving officer, returned case inspector)? Give summary @ -Spoke with Dr. Ma, who accepts admission Was smoking cessation discussed for >3mins.? @ -No Was critical care preformed (if so, how long)? @ -No Were there social determinants of health that impacted care today? How? (Homelessness, low income, unemployed, alcoholism, drug addiction, transportation, low edu. Level, literacy, decrease access to med. care, penitentiary, rehab)? @ -No Was there de-escalation of care discussed even if they declined (Discuss DNR or withdrawal of care, Hospice)? DNR status @ -No What co-morbidities impacted this encounter? (DM, HTN, Smoking, COPD, CAD, Cancer, CVA, ARF, Chemo, Hep., AIDS, mental health diagnosis, sleep apnea, morbid obesity)? @ -None Was patient admitted / discharged? Hospital course, mention meds given and route, prescriptions, significant lab abnormalities, going to OR and other pertinent info. @ -Admission 37-year-old male S/P cardiac ablation presents to the ED with chest pain radiating to his back. CTA of the chest showed no evidence of dissection. Chest x-ray showed no acute findings. Laboratory studies including troponin 2 negative. She will be admitted to observation with consult to cardiology for chest pain rule out. Discussed plan of care with patient who is in agreement. Undiagnosed new problem with uncertain prognosis? @ -No Drug Therapy requiring intensive monitoring for toxicity (Heparin, Nitro, Insulin, Cardizem)? @ -No Were any procedures done? @ -No Diagnosis/symptom? @ -Chest pain Acute, or Chronic, or Acute on Chronic? @ -Acute Uncomplicated (without systemic symptoms) or Complicated (systemic symptoms)? @ -Uncomplicated Side effects of treatment? @ -No Exacerbation, Progression, or Severe Exacerbation? @ -No Poses a threat to life or bodily function? How? (Chest pain, [place], [place], pneumonia, PE, COPD, DKA, ARF, appy, cholecystitis, CVA, Diverticulitis, Homicidal, Suicidal, threat to staff... and all critical care pts) @ -No (DaisyTorito) - Lab Data Lab Results 08/02/23 08/02/23 08/02/23 Range/Units 16:44 16:44 16:44 WBC 7.6 (3.8-10.6) k/uL RBC 5.01 (4.30-5.90) m/uL Hgb 14.9 (13.0-17.5) gm/dL Hct 46.1 (39.0-53.0) % MCV 92.0 (80.0-100.0) fL MCH 29.8 (25.0-35.0) pg MCHC 32.4 (31.0-37.0) g/dL RDW 13.8 (11.5-15.5) % Plt Count 307 (150-450) k/uL MPV 8.2 Neutrophils % 61 % Lymphocytes % 30 % Monocytes % 5 % Eosinophils % 2 % Basophils % 1 % Neutrophils # 4.6 (1.3-7.7) k/uL Lymphocytes # 2.3 (1.0-4.8) k/uL Monocytes # 0.4 (0-1.0) k/uL Eosinophils # 0.2 (0-0.7) k/uL Basophils # 0.1 (0-0.2) k/uL PT 10.1 (9.0-12.0) sec INR 0.9 (<1.2) APTT 26.1 (22.0-30.0) sec Sodium (137-145) mmol/L Potassium (3.5-5.1) mmol/L Chloride (98-107) mmol/L Carbon Dioxide (22-30) mmol/L Anion Gap mmol/L BUN (9-20) mg/dL Creatinine (0.66-1.25) mg/dL Est GFR (CKD-EPI)AfAm (>60 ml/min/1.73 sqM) Est GFR (CKD-EPI)NonAf (>60 ml/min/1.73 sqM) Glucose (74-99) mg/dL Calcium (8.4-10.2) mg/dL Total Bilirubin (0.2-1.3) mg/dL AST (17-59) U/L ALT (4-49) U/L Alkaline Phosphatase (38-126) U/L Troponin I (0.000-0.034) ng/mL Total Protein (6.3-8.2) g/dL Albumin (3.5-5.0) g/dL Urine Color Light Yellow Urine Appearance Clear (Clear) Urine pH 6.0 (5.0-8.0) Ur Specific [place] 1.007 (1.001-1.035) Urine Protein Negative (Negative) Urine Glucose (UA) Negative (Negative) Urine Ketones Negative (Negative) Urine Blood Negative (Negative) Urine Nitrite Negative (Negative) Urine Bilirubin Negative (Negative) Urine Urobilinogen <2.0 (<2.0) mg/dL Ur Leukocyte Esterase Negative (Negative) Influenza Type A (PCR) (Not Detectd) Influenza Type B (PCR) (Not Detectd) RSV (PCR) (Not Detectd) SARS-CoV-2 (PCR) (Not Detectd) 08/02/23 08/02/23 08/02/23 Range/Units 16:44 16:44 16:44 WBC (3.8-10.6) k/uL RBC (4.30-5.90) m/uL Hgb (13.0-17.5) gm/dL Hct (39.0-53.0) % MCV (80.0-100.0) fL MCH (25.0-35.0) pg MCHC (31.0-37.0) g/dL RDW (11.5-15.5) % Plt Count (150-450) k/uL MPV Neutrophils % % Lymphocytes % % Monocytes % % Eosinophils % % Basophils % % Neutrophils # (1.3-7.7) k/uL Lymphocytes # (1.0-4.8) k/uL Monocytes # (0-1.0) k/uL Eosinophils # (0-0.7) k/uL Basophils # (0-0.2) k/uL PT (9.0-12.0) sec INR (<1.2) APTT (22.0-30.0) sec Sodium 136 L (137-145) mmol/L Potassium 4.8 (3.5-5.1) mmol/L Chloride 104 (98-107) mmol/L Carbon Dioxide 24 (22-30) mmol/L Anion Gap 8 mmol/L BUN 6 L (9-20) mg/dL Creatinine 0.71 (0.66-1.25) mg/dL Est GFR (CKD-EPI)AfAm >90 (>60 ml/min/1.73 sqM) Est GFR (CKD-EPI)NonAf >90 (>60 ml/min/1.73 sqM) Glucose 85 (74-99) mg/dL Calcium 9.6 (8.4-10.2) mg/dL Total Bilirubin 0.6 (0.2-1.3) mg/dL AST 23 (17-59) U/L ALT 11 (4-49) U/L Alkaline Phosphatase 42 (38-126) U/L Troponin I <0.012 (0.000-0.034) ng/mL Total Protein 7.8 (6.3-8.2) g/dL Albumin 4.6 (3.5-5.0) g/dL Urine Color Urine Appearance (Clear) Urine pH (5.0-8.0) Ur Specific [place] (1.001-1.035) Urine Protein (Negative) Urine Glucose (UA) (Negative) Urine Ketones (Negative) Urine Blood (Negative) Urine Nitrite (Negative) Urine Bilirubin (Negative) Urine Urobilinogen (<2.0) mg/dL Ur Leukocyte Esterase (Negative) Influenza Type A (PCR) Not Detected (Not Detectd) Influenza Type B (PCR) Not Detected (Not Detectd) RSV (PCR) Not Detected (Not Detectd) SARS-CoV-2 (PCR) Not Detected (Not Detectd) 08/02/23 Range/Units 19:31 WBC (3.8-10.6) k/uL RBC (4.30-5.90) m/uL Hgb (13.0-17.5) gm/dL Hct (39.0-53.0) % MCV (80.0-100.0) fL MCH (25.0-35.0) pg MCHC (31.0-37.0) g/dL RDW (11.5-15.5) % Plt Count (150-450) k/uL MPV Neutrophils % % Lymphocytes % % Monocytes % % Eosinophils % % Basophils % % Neutrophils # (1.3-7.7) k/uL Lymphocytes # (1.0-4.8) k/uL Monocytes # (0-1.0) k/uL Eosinophils # (0-0.7) k/uL Basophils # (0-0.2) k/uL PT (9.0-12.0) sec INR (<1.2) APTT (22.0-30.0) sec Sodium (137-145) mmol/L Potassium (3.5-5.1) mmol/L Chloride (98-107) mmol/L Carbon Dioxide (22-30) mmol/L Anion Gap mmol/L BUN (9-20) mg/dL Creatinine (0.66-1.25) mg/dL Est GFR (CKD-EPI)AfAm (>60 ml/min/1.73 sqM) Est GFR (CKD-EPI)NonAf (>60 ml/min/1.73 sqM) Glucose (74-99) mg/dL Calcium (8.4-10.2) mg/dL Total Bilirubin (0.2-1.3) mg/dL AST (17-59) U/L ALT (4-49) U/L Alkaline Phosphatase (38-126) U/L Troponin I <0.012 (0.000-0.034) ng/mL Total Protein (6.3-8.2) g/dL Albumin (3.5-5.0) g/dL Urine Color Urine Appearance (Clear) Urine pH (5.0-8.0) Ur Specific [place] (1.001-1.035) Urine Protein (Negative) Urine Glucose (UA) (Negative) Urine Ketones (Negative) Urine Blood (Negative) Urine Nitrite (Negative) Urine Bilirubin (Negative) Urine Urobilinogen (<2.0) mg/dL Ur Leukocyte Esterase (Negative) Influenza Type A (PCR) (Not Detectd) Influenza Type B (PCR) (Not Detectd) RSV (PCR) (Not Detectd) SARS-CoV-2 (PCR) (Not Detectd) - EKG Data EKG Comments: EKG shows a sinus rhythm at [address] and T-wave changes. ER with a 6, QRS 90, QT/QTc 371/414. (Torito Villa) Disposition <Cady Gore - Last Filed: 08/02/23 15:44> Time of Disposition: 21:00 <Torito Villa - Last Filed: 08/02/23 21:11> Clinical Impression: Chest pain Disposition: ADMITTED IP TO THIS HOSP Condition: Good Referrals: Romi Mas NPC [Primary Care Provider] - 1-2 days
--- NOTE | 2023-08-02 16:19 | XR ---
EXAMINATION TYPE: XR chest 2V DATE OF EXAM: 08/02/2023 COMPARISON: 04/09/2023 INDICATION: Chest pain TECHNIQUE: Single frontal view of the chest is obtained. FINDINGS: The heart size is normal. The pulmonary vasculature is normal. The lungs are clear. IMPRESSION: 1. No acute pulmonary process.
[2023-08-02 16:57] LABS: Basophils # (A) 0.1 k/uL (0-0.2); Basophils % (A) 1 %; Eosinophils # (A) 0.2 k/uL (0-0.7); Eosinophils % (A) 2 %; HCT 46.1 % (39.0-53.0); HGB 14.9 gm/dL (13.0-17.5); Lymphocytes # (A) 2.3 k/uL (1.0-4.8); Lymphocytes % (A) 30 %; MCH 29.8 pg (25.0-35.0); MCHC 32.4 g/dL (31.0-37.0); Mean Platelet Volume 8.2; Monocytes # (A) 0.4 k/uL (0-1.0); Monocytes % (A) 5 %; Neutrophils # (A) 4.6 k/uL (1.3-7.7); Neutrophils % (A) 61 %; Platelet Count 307 k/uL (150-450); RBC 5.01 m/uL (4.30-5.90); RDW 13.8 % (11.5-15.5); WBC 7.6 k/uL (3.8-10.6)
[2023-08-02 17:11] LABS: INR 0.9 (<1.2); Partial Thromboplastin Time 26.1 sec (22.0-30.0); Prothrombin Time 10.1 sec (9.0-12.0)
[2023-08-02 17:19] LABS: ALT 11 U/L (4-49); AST 23 U/L (17-59); African American GFR (CKD) >90 (>60 ml/min/1.73 sqM); Albumin 4.6 g/dL (3.5-5.0); Alkaline Phosphatase 42 U/L (38-126); Anion Gap 8 mmol/L; Blood Urea Nitrogen 6 mg/dL (9-20); Calcium 9.6 mg/dL (8.4-10.2); Carbon Dioxide 24 mmol/L (22-30); Chloride 104 mmol/L (98-107); Glucose 85 mg/dL (74-99); Non-African American GFR(CKD) >90 (>60 ml/min/1.73 sqM); Potassium 4.8 mmol/L (3.5-5.1); Sodium 136 mmol/L (137-145); Total Bilirubin 0.6 mg/dL (0.2-1.3); Total Protein 7.8 g/dL (6.3-8.2)
[2023-08-02 17:52] LABS: Appearance,Urine Clear (Clear); Bilirubin,Urine Negative (Negative); Blood,Urine Negative (Negative); Color,Urine Light Yellow; Glucose,Urine (UA) Negative (Negative); Ketones,Urine Negative (Negative); Leukocyte Esterase,Urine Negative (Negative); Nitrite,Urine Negative (Negative); Protein,Urine Negative (Negative); Specific Gravity,Urine 1.007 (1.001-1.035); Urobilinogen,Urine <2.0 mg/dL (<2.0)
[2023-08-02] MEDS ORDERED: ONDANSETRON 4 MG/2 ML VIAL IVP STA (19:08)
[2023-08-02] MEDS ORDERED: ASPIRIN 81 MG PO STA (19:08)
[2023-08-02] MEDS ORDERED: SODIUM CHLORIDE 0.9% 1,000 ML IV STA (19:48)
--- NOTE | 2023-08-02 19:52 | CT ---
CT CHEST FOR PULMONARY EMBOLISM. EXAMINATION TYPE: CT angio chest DATE OF EXAM: 08/02/2023 INDICATION: chest pain, dizziness CT DLP: 727.4 mGycm, Automated exposure control for dose reduction was used. CONTRAST: Patient injected with 100 mL of Isovue 370. COMPARISON: None TECHNIQUE: CT of the chest is performed on a spiral scan at 2 mm thick sections. Study is performed with intravenous contrast timed for evaluation for pulmonary embolism. This will limit additional po rtions of the evaluation. 3-D MIP images reconstructed by the technologist are reviewed on the compu ter in the coronal and sagittal planes. FINDINGS: No persistent filling defects are evident to suggest acute pulmonary embolism. No mediastinal or hilar adenopathy enlarged by CT criteria is evident. The ascending aorta diameter at the level of the main pulmonary artery is 3.2 cm. The main pulmonary artery diameter at the bifur cation is 2.9 cm. While compressive atelectasis within the dependent lung bases. Limited CT section through the upper abdomen are unremarkable. IMPRESSION: 1. No acute pulmonary embolism. 2. No acute pulmonary process.
[2023-08-02] MEDS ORDERED: HYDROmorphone 1 MG/ML 1 ML SYRINGE IVP PRN (21:11)
[2023-08-02] MEDS ORDERED: ACETAMINOPHEN TAB 325 MG TAB PO PRN (21:11)
[2023-08-02] MEDS ORDERED: KETOROLAC 15 MG/ML 1 ML VIAL IVP PRN (21:11)
[2023-08-02] MEDS ORDERED: NALOXONE 0.4 MG/ML 1 ML VIAL IV PRN (21:11)
[2023-08-02] MEDS: SODIUM CHLORIDE 0.9% 1,000 ML IV SCH (21:30)
[2023-08-03] MEDS ORDERED: MORPHINE SULFATE 4 MG/ML SYRINGE IVP PRN (01:10)
--- NOTE | 2023-08-03 05:23 | P.HPIM ---
History of Present Illness H&P Date: 08/02/23 Chief Complaint: Chest pain 37-year-old male with COPD and GERD Patient coming in for evaluation of chest pain he describes sudden onset chest pain happened today in the afternoon while resting doing nothing pain was across his chest radiating to the back severe 8 out of 10 in severity associated with feeling nauseous palpitations dizzy and lightheaded denies any profuse sweating vomiting fevers chills or shortness of breath denies any coughing denies any abdominal pain changes in bowel or urinary habits denies any GI bleeding He reports that moving was making the pain worse the pain continued throughout the afternoon until he arrived to the hospital. He reports history of cardiac ablation couple years ago he admits to tobacco smoking half pack a day denies any illicit drugs or heavy alcohol He denies any recent travel her hospital stay denies any history of blood clots review of systems Pertinent positives as noted in HPI. All other systems were reviewed and are negative on exam Constitutional: No acute distress, conversant, pleasant Eyes: Anicteric sclerae, moist conjunctiva, Pupils equal round reactive to light ENMT: NC/AT Oropharynx clear, no erythema, or exudates Neck: Supple, no masses, or JVD No carotid bruits No thyromegaly Lungs: Clear to auscultation Clear to percussion Normal respiratory effort, no accessory muscle use Cardiovascular: Heart regular in rate and rhythm, No murmurs, gallops, or rubs No peripheral edema Abdominal: Soft Nontender, no guarding, rebound or rigidity Abdomen moving with respiration Normoactive bowel sounds No hepatomegaly, No splenomegaly No palpable mass No abdominal wall hernia noted Skin: Normal temperature, tone, texture, turgor No induration No subcutaneous nodules No rash, lesions No ulcers Extremities: No digital cyanosis No clubbing Pedal pulses intact and symmetrical Radial pulses intact and symmetrical No calf tenderness Psychiatric: Alert and oriented to person, place and time Appropriate affect fair judgement Neuro Muscles Strength 5/5 in all 4 extremities Sensation to light touch grossly present throughout Cranial nerves II-XII grossly intact Lymphatics: no palpable cervical or supraclavicular lymph nodes Past Medical History Past Medical History: COPD, GERD/Reflux Additional Past Medical History / Comment(s): undiagnosed heart issues, pvc's,heart ablation History of Any Multi-Drug Resistant Organisms: None Reported Past Surgical History: Appendectomy, Orthopedic Surgery, Tonsillectomy Additional Past Surgical History / Comment(s): 2 left hip surgery, left shoulder, eye surgery Past Anesthesia/Blood Transfusion Reactions: No Reported Reaction Past Psychological History: Anxiety, Depression, PTSD Smoking Status: Current every day smoker Past Alcohol Use History: Rare Past Drug Use History: None Reported - Past Family History Father History Unknown: Yes Mother History Unknown: Yes Medications and Allergies Home Medications Medication Instructions Recorded Confirmed Type Cetirizine HCl [Zyrtec] 10 mg PO DAILY 01/13/18 08/02/23 History Pantoprazole Sodium [Protonix] 40 mg PO BID 12/13/22 08/02/23 History Topiramate 50 mg PO HS 12/13/22 08/02/23 History Butalb/Acetaminophen/Caffeine 1 cap PO DAILY PRN 08/02/23 08/02/23 History [Fioricet 50-300-40 mg Capsule] Naloxone HCl [Narcan] 4 mg NASAL ONCE PRN 08/02/23 08/02/23 History oxyCODONE-APAP 5-325MG [Percocet 1 tab PO BID PRN 08/02/23 08/02/23 History 5-325 mg] Allergies Allergy/AdvReac Type Severity Reaction Status Date / Time No Known Allergies Allergy Verified 08/02/23 14:33 Physical Exam Vitals: Vital Signs Temp Pulse Pulse Resp BP BP Pulse Ox 08/03/23 03:18 98.1 F 55 L 14 101/56 96 08/02/23 23:35 97.9 F 61 16 111/63 96 08/02/23 22:45 56 L 18 102/58 95 08/02/23 21:31 64 18 109/62 97 08/02/23 20:13 63 18 107/67 98 08/02/23 18:55 64 18 110/67 99 08/02/23 14:30 98.4 F 80 20 104/68 98 Intake and Output 08/02/23 08/02/23 08/03/23 14:59 22:59 06:59 Other: Weight 64.41 kg 64.41 kg Results CBC & Chem 7: 08/02/23 16:44 08/02/23 16:44 Labs: Abnormal Lab Results - Last 24 Hours (Table) 08/02/23 Range/Units 16:44 Sodium 136 L (137-145) mmol/L BUN 6 L (9-20) mg/dL Thrombosis Risk Factor Assmnt - Choose All That Apply Any of the Below Risk Factors Present?: Yes Each Factor Represents 1 point: Abnormal pulmonary function (COPD), Medical pt on bed rest Other Risk Factors: No Thrombosis Risk Factor Assessment Total Risk Factor Score: 2 Thrombosis Risk Factor Assessment Level: Low Risk Assessment and Plan Assessment: 37-year-old male presenting with chest pain I discussed the case with the ED doctor and accepted the admission for atypical chest pain to rule out acute coronary syndrome with anticipated length of stay less than 2 midnights Atypical chest pain EKG no acute ST changes Troponins negative 2 CT angiogram of the chest no dissection no PE Continue with aspirin Nitro as needed When necessary IV morphine 4 mg every 4 hours of depression Gentle IV fluid hydration 100 mL per hour Cardiac monitoring Cardiology consult Blood work reviewed unremarkable white count 7.6 hemoglobin 14.9 bun16 creatinine 0.7 Sodium 136 potassium 4.8 Acute respiratory viral panel negative Covid influenza and RSV DVT prophylaxis heparin subcu 3 times a day Full code
[2023-08-03] MEDS ORDERED: PANTOPRAZOLE 40 MG TABLET PO SCH (07:30)
[2023-08-03] MEDS ORDERED: HEPARIN SODIUM,PORCINE 5,000 UNIT/ML 1 ML VIAL SQ SCH (08:00)
[2023-08-03] MEDS: SODIUM CHLORIDE 0.9% 1,000 ML IV SCH (08:56)
[2023-08-03] MEDS ORDERED: ASPIRIN 81 MG PO SCH (09:00)
[2023-08-03 10:39] VITALS: TEMP 97.8
[2023-08-03 10:44] VITALS: RESP 16
--- NOTE | 2023-08-03 11:26 | P.CRDCN ---
History of Present Illness History of present illness: HISTORY OF PRESENTING ILLNESS Patient is pleasant 37-year-old male with history of palpitations, apparent PVCs status post ablation, history of lightheadedness, questionable COPD or asthma w ho presents secondary chest pain and lightheadedness. 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 She presents secondary to episodes of chest pain which feels like a pressure sensation in the lower sternum which has been fairly constant over the last day. He admits to some feeling of his heart racing and feeling lightheaded. He denies any recent changes in medications or any strenuous activity. He did have similar episodes around the time of his ablation. He believes the ablation was related to extra beats however no specific mention of ventricular tachycardia. Also lightheaded and this is when he is standing up. He denies any actual syncope however did have syncope back before his ablation in 2018. He has seen cardiologists in [place] as well as [place]. He denies any history of CAD. He did have a CT coronary angiography in the remote past. Patient underwent CT PE protocol which showed no PE and no dissection. He has continued to have palpitations however on monitor only normal sinus rhythm and no significant PVCs or PACs. REVIEW OF SYSTEMS At the time of my exam: CONSTITUTIONAL: Denies fever or chills. CARDIOVASCULAR: +chest pain, no shortness of breath, orthopnea, PND +palpitations, +lightheadedness. RESPIRATORY: Denies cough. GASTROINTESTINAL: Denies abdominal pain, diarrhea, constipation, nausea or vomiting. MUSCULOSKELETAL: Denies myalgias. NEUROLOGIC: Denies numbness, tingling or weakness. ENDOCRINE: Denies fatigue, weight change, polydipsia or polyurina. GENITOURINARY: Denies burning, hematuria or urgency with micturation. HEMATOLOGIC: Denies history of anemia or bleeding. PHYSICAL EXAMINATION Vital signs reviewed. CONSTITUTIONAL: No apparent distress. HEENT: Head is normocephalic. Pupils are equal, round. Sclerae anicteric. Mucous membranes of the mouth are moist. No JVD. No carotid bruit. CHEST EXAMINATION: Lungs are clear to auscultation. No chest wall tenderness is noted on palpation or with deep breathing. HEART EXAMINATION: Regular rate and rhythm. S1, S2 heard. No murmurs, gallops or rub. ABDOMEN: Soft, nontender. Positive bowel sounds. EXTREMITIES: 2+ peripheral pulses, no lower extremity edema and no calf tenderness. NEUROLOGIC EXAMINATION: Patient is awake, alert and oriented x3. ASSESSMENT 1. Atypical chest pain 2. History of ablation, likely PVCs by history 3. Prior history of syncope, none recently 4. Palpitations corresponded with normal sinus rhythm on telemetry 5. Lightheadedness PLAN Workup at this point is unrevealing with normal troponins, normal CT PE protocol and no significant arrhythmias noted on telemetry. Does not have any risk factors and prior CT coronary angiography was negative. Discussed other etiologies and consider Toradol and GI cocktail and monitor response. Patient cleared from a cardiology standpoint for discharge home with outpatient follow- up. Past Medical History Past Medical History: COPD, GERD/Reflux Additional Past Medical History / Comment(s): undiagnosed heart issues, pvc's,h eart ablation History of Any Multi-Drug Resistant Organisms: None Reported Past Surgical History: Appendectomy, Orthopedic Surgery, Tonsillectomy Additional Past Surgical History / Comment(s): 2 left hip surgery, left shoulde r, eye surgery Past Anesthesia/Blood Transfusion Reactions: No Reported Reaction Past Psychological History: Anxiety, Depression, PTSD Smoking Status: Current every day smoker Past Alcohol Use History: Rare Past Drug Use History: None Reported - Past Family History Father History Unknown: Yes Mother History Unknown: Yes Medications and Allergies Home Medications Medication Instructions Recorded Confirmed Type Cetirizine HCl [Zyrtec] 10 mg PO DAILY 01/13/18 08/02/23 History Pantoprazole Sodium [Protonix] 40 mg PO BID 12/13/22 08/02/23 History Topiramate 50 mg PO HS 12/13/22 08/02/23 History Butalb/Acetaminophen/Caffeine 1 cap PO DAILY PRN 08/02/23 08/02/23 History [Fioricet 50-300-40 mg Capsule] Naloxone HCl [Narcan] 4 mg NASAL ONCE PRN 08/02/23 08/02/23 History oxyCODONE-APAP 5-325MG [Percocet 1 tab PO BID PRN 08/02/23 08/02/23 History 5-325 mg] Allergies Allergy/AdvReac Type Severity Reaction Status Date / Time No Known Allergies Allergy Verified 08/02/23 14:33 Physical Exam Vitals: Vital Signs Temp Pulse Pulse Resp BP BP Pulse Ox 08/03/23 08:00 54 L 16 08/03/23 07:00 97.8 F 54 L 104/65 98 08/03/23 03:18 98.1 F 55 L 14 101/56 96 08/02/23 23:35 97.9 F 61 16 111/63 96 08/02/23 22:45 56 L 18 102/58 95 08/02/23 21:31 64 18 109/62 97 08/02/23 20:13 63 18 107/67 98 08/02/23 18:55 64 18 110/67 99 08/02/23 14:30 98.4 F 80 20 104/68 98 Intake and Output 08/02/23 08/03/23 08/03/23 22:59 06:59 14:59 Intake Total 840 Balance 840 Intake: Oral 840 Other: Weight 57.5 kg Results 08/02/23 16:44 08/02/23 16:44 Cardiac Enzymes 08/02/23 08/02/23 08/02/23 Range/Units 16:44 16:44 19:31 AST 23 (17-59) U/L Troponin I <0.012 <0.012 (0.000-0.034) ng/mL 08/03/23 08/03/23 Range/Units 00:51 03:56 AST (17-59) U/L Troponin I <0.012 <0.012 (0.000-0.034) ng/mL Coagulation 08/02/23 Range/Units 16:44 PT 10.1 (9.0-12.0) sec APTT 26.1 (22.0-30.0) sec CBC 08/02/23 Range/Units 16:44 WBC 7.6 (3.8-10.6) k/uL RBC 5.01 (4.30-5.90) m/uL Hgb 14.9 (13.0-17.5) gm/dL Hct 46.1 (39.0-53.0) % Plt Count 307 (150-450) k/uL Comprehensive Metabolic Panel 08/02/23 Range/Units 16:44 Sodium 136 L (137-145) mmol/L Potassium 4.8 (3.5-5.1) mmol/L Chloride 104 (98-107) mmol/L Carbon Dioxide 24 (22-30) mmol/L BUN 6 L (9-20) mg/dL Creatinine 0.71 (0.66-1.25) mg/dL Glucose 85 (74-99) mg/dL Calcium 9.6 (8.4-10.2) mg/dL AST 23 (17-59) U/L ALT 11 (4-49) U/L Alkaline Phosphatase 42 (38-126) U/L Total Protein 7.8 (6.3-8.2) g/dL Albumin 4.6 (3.5-5.0) g/dL Current Medications Generic Name Dose Route Start Last Admin Trade Name Freq PRN Reason Stop Dose Admin Acetaminophen 650 mg 08/02/23 21:11 Acetaminophen Tab 325 Mg Tab PO Q6HR PRN Mild Pain or Fever > 100.5 Aspirin 81 mg 08/03/23 09:00 08/03/23 08:56 Aspirin 81 Mg PO 81 mg DAILY JORGE Administration Heparin Sodium (Porcine) 5,000 unit 08/03/23 08:00 08/03/23 08:56 Heparin Sodium,Porcine 5,000 Unit/Ml 1 Ml Vial SQ 5,000 unit Q8HR JORGE Administration Hydromorphone HCl 1 mg 08/02/23 21:11 Hydromorphone 1 Mg/Ml 1 Ml Syringe IVP Q3HR PRN Severe Pain (Scale 7 to 10) Sodium Chloride 1,000 mls @ 75 mls/hr 08/02/23 21:15 08/03/23 08:56 Saline 0.9% IV 75 mls/hr .[id number] JORGE Administration Ketorolac Tromethamine 15 mg 08/02/23 21:11 Ketorolac 15 Mg/Ml 1 Ml Vial IVP 08/05/23 21:13 Q6HR PRN Moderate Pain (Scale 4 to 6) Morphine Sulfate 4 mg 08/03/23 01:10 Morphine Sulfate 4 Mg/Ml Syringe IVP Q4HR PRN Pain Naloxone HCl 0.2 mg 08/02/23 21:11 Naloxone 0.4 Mg/Ml 1 Ml Vial IV Q2M PRN Opioid Reversal Pantoprazole Sodium 40 mg 08/03/23 07:30 08/03/23 06:40 Pantoprazole 40 Mg Tablet PO 40 mg AC-BID JORGE Administration Intake and Output 08/02/23 08/03/23 08/03/23 22:59 06:59 14:59 Intake Total 840 Balance 840 Intake: Oral 840 Other: Weight 57.5 kg 08/02/23 16:44 08/02/23 16:44
[2023-08-03] MEDS ORDERED: MAG HYDROX/AL HYDROX/SIMETH 30 ML, HYOSCYAMINE ELIXIR 10 ML, LIDOCAINE VISCOUS 10 ML PO ONE ×3 (12:00)
[2023-08-03 13:33] VITALS: BP 103/59
--- NOTE | 2023-08-03 14:29 | P.DS ---
Providers Date of admission: 08/02/23 20:36 Expected date of discharge: 08/03/23 Attending physician: Brenton Ma MD Consults: 08/02/23 21:11 Consult Physician Urgent Consulting Provider: [facility] Consult Reason/Comments: Chest pain Do you want consulting provider notified?: Yes Primary care physician: [facility] Course: Chest pain, atypical 37-year-old male presenting with chest pain. In the ER, patient was afebrile, 104/68, HR 80, 98% on room air. CBC, BMP, LFTs, Coags unremarkable. UA unremarkable. Troponins negative x 4. CXR showed no acute process. WKG showed sinus rhythm with possible left atrial enlargement, no evidence of ischemia. CT chest angiography was negative for pulmonary embolism. Pt was admitted to observation for ACS rule out. Seen and cleared by cardiology given no risk factors and negative troponins. He will f/u with PCP on discharge. Gen: awake, alert HEENT: normocephalic, atraumatic, good hearing acuity, moist mucous membranes Resp: good air exchange, breathing comfortably with no accessory muscle use CVS: good distal perfusion x 4, GI: soft, NTTP, ND : no SPT, no CVAT, ornelas catheter not present MSK: no pitting edema, no clubbing Neuro: non-focal, moving all extremities Psych: cooperative, euthymic mood Patient Condition at Discharge: Good Plan - Discharge Summary Discharge Rx Participant: No New Discharge Prescriptions: New Acetaminophen Tab [Tylenol] 650 mg PO Q6HR PRN tab PRN Reason: Mild Pain Or Fever > 100.5 Continue Cetirizine HCl [Zyrtec] 10 mg PO DAILY Topiramate 50 mg PO HS Naloxone HCl [Narcan] 4 mg NASAL ONCE PRN PRN Reason: overdose Pantoprazole Sodium [Protonix] 40 mg PO BID Butalb/Acetaminophen/Caffeine [Fioricet 50-300-40 mg Capsule] 1 cap PO DAILY PRN PRN Reason: Migraine Headache oxyCODONE-APAP 5-325MG [Percocet 5-325 mg] 1 tab PO BID PRN PRN Reason: Pain Discharge Medication List Cetirizine HCl [Zyrtec] 10 mg PO DAILY 01/13/18 [History] Pantoprazole Sodium [Protonix] 40 mg PO BID 12/13/22 [History] Topiramate 50 mg PO HS 12/13/22 [History] Butalb/Acetaminophen/Caffeine [Fioricet 50-300-40 mg Capsule] 1 cap PO DAILY PRN 08/02/23 [History] Naloxone HCl [Narcan] 4 mg NASAL ONCE PRN 08/02/23 [History] oxyCODONE-APAP 5-325MG [Percocet 5-325 mg] 1 tab PO BID PRN 08/02/23 [History] Acetaminophen Tab [Tylenol] 650 mg PO Q6HR PRN tab 08/03/23 [Rx] Follow up Appointment(s)/Referral(s): Romi Mas, DEVANTE [Primary Care Provider] - 1-2 days Discharge Disposition: HOME SELF-CARE
[2023-08-03 15:28] VITALS: PULSE 60
== END 2023-08-03 16:15 | disposition home or self-care (01) ==
LOC: EC 14:27 → 6NMEDSUR 20:36 → 3SCARD 22:54
PROVIDERS: ADMIT Internal Medicine; ATTEND Internal Medicine
DX: R07.89 Other chest pain (principal); R42 Dizziness and giddiness; R11.0 Nausea; R00.0 Tachycardia, unspecified; R00.2 Palpitations; J44.9 Chronic obstructive pulmonary disease, unspecified; K21.9 Gastro-esophageal reflux disease without esophagitis; F32.A Depression, unspecified; F43.10 Post-traumatic stress disorder, unspecified; F41.9 Anxiety disorder, unspecified; F17.210 Nicotine dependence, cigarettes, uncomplicated; Z20.822 Contact with and (suspected) exposure to COVID-19; Z79.51 Long term (current) use of inhaled steroids; Z79.899 Other long term (current) drug therapy; Z86.79 Personal history of other diseases of the circulatory system; Z90.49 Acquired absence of other specified parts of digestive tract; Z98.890 Other specified postprocedural states
CPT/HCPCS: 96372; 96361; 96374; 99285; 36415; 93005; 80053; 84484 ×2; 85025; 85610; 85730; 81003; 87636; 71046; 71275; G0378 ×3; J1644; J2405; Q9967

== ENCOUNTER → 2024-05-18 | Outpatient (CLI) | payer OTHER ==
--- NOTE | 2024-05-18 16:36 | FL ---
EXAMINATION TYPE: FL arthrogram hip LT DATE OF EXAM: 05/18/2024 2:38 PM CLINICAL INDICATION:Male, 38 years old with history of M25.852 OTHER SPECIFIED JOINT DISORDERS, LEFT HIP; COMPARISON: None TECHNIQUE/PROCEDURE: After the procedure was explained and informed consent was obtained from the pat ient, the patient was prepped and draped in the usual sterile fashion. 1% Lidocaine was used as local anesthetic using a 25 gauge needle. A 22 gauge needle was then advanced into the left hip joint usin g fluoroscopic guidance. Approximately 10 cc of contrast was injected into the joint (an admixture of Gadavist, Isovue-370, and sterile saline). The needle was then removed and a Band-Aid was applied. The patient tolerated procedure well. The patient was then sent to the MR unit for MRI exam. Fluoroscopic time: 1 minute 49 seconds min Fluoroscopic images: 1 Radiographs taken: 0 2ml Depo, 3ml Marcaine FINDINGS: Contrast was seen filling the left hip joint. Iatrogenic contrast seen around the capsule noted. No a dditional extracapsular contrast collections were noted.. IMPRESSION: Successful left hip arthrogram. MRI left hip report to follow.
== END | disposition home or self-care (01) ==
LOC: RADFLMAIN 12:47
PROVIDERS: ATTEND Orthopaedic Surgery
DX: M25.852 Other specified joint disorders, left hip (principal)
CPT/HCPCS: 27093; 73525; 73722; A9585; Q9967

== ENCOUNTER 2024-06-03 11:33 | Emergency (ER) | payer OTHER ==
[2024-06-03 11:40] VITALS: RESP 16; TEMP 98.3
--- NOTE | 2024-06-03 12:35 | ED ---
General Adult HPI - General Chief complaint: Chest Pain Stated complaint: chest pain Time Seen by Provider: 06/03/24 11:55 Source: patient, RN notes reviewed, old records reviewed Mode of arrival: ambulatory Limitations: no limitations - History of Present Illness Initial comments: This is a 38-year-old male who presents to the emergency department with a past medical history significant for smoking. Patient denies any family history of heart disease. Patient denies any high cholesterol high blood pressure or diabetes. Patient comes in today because he woke up this morning at 6 AM had some sharp chest pain and it hurt to take a deep breath at that time. Patient states it did not make him short of breath just hurts take a deep breath. Patient denies any radiation of the pain. Patient denies any nausea vomiting. Patient denies any diaphoretic episode. Patient dates the pain is gone currently. Patient states has been worked up for chest pain before and everything was negative. Patient also states he had CAT scans to rule out PEs and aortic issues in the past and they have been negative as well - Related Data Home Medications Medication Instructions Recorded Confirmed Cetirizine HCl [Zyrtec] 10 mg PO DAILY 01/13/18 06/03/24 Pantoprazole Sodium [Protonix] 40 mg PO DAILY 12/13/22 06/03/24 Topiramate 50 mg PO HS 12/13/22 06/03/24 Butalb/Acetaminophen/Caffeine 1 cap PO DAILY PRN 08/02/23 06/03/24 [Fioricet 50-300-40 mg Capsule] oxyCODONE-APAP 5-325MG [Percocet 1 tab PO BID PRN 08/02/23 06/03/24 5-325 mg] Allergies Allergy/AdvReac Type Severity Reaction Status Date / Time No Known Allergies Allergy Verified 06/03/24 13:35 Review of Systems ROS Statement: Those systems with pertinent positive or pertinent negative responses have been documented in the HPI. ROS Other: All systems not noted in ROS Statement are negative. Past Medical History Past Medical History: COPD, GERD/Reflux Additional Past Medical History / Comment(s): undiagnosed heart issues, pvc's,heart ablation History of Any Multi-Drug Resistant Organisms: None Reported Past Surgical History: Appendectomy, Orthopedic Surgery, Tonsillectomy Additional Past Surgical History / Comment(s): 2 left hip surgery, left shoulder, eye surgery Past Anesthesia/Blood Transfusion Reactions: No Reported Reaction Past Psychological History: Anxiety, Depression, PTSD Smoking Status: Current every day smoker Past Alcohol Use History: Rare Past Drug Use History: None Reported - Past Family History Father History Unknown: Yes Mother History Unknown: Yes General Exam - General Exam Comments Initial Comments: GENERAL: Patient is well-developed and well-nourished. Patient is nontoxic and well- hydrated and is in no acute distress. ENT: Neck is soft and supple. No significant lymphadenopathy is noted. Oropharynx is clear. Moist mucous membranes. Neck has full range of motion without el iciting any pain EYES: The sclera were anicteric and conjunctiva were pink and moist. Extraocular movements were intact and pupils were equal round and reactive to light. Eyelids were unremarkable. PULMONARY: Unlabored respirations. Good breath sounds bilaterally. No audible rales rhonchi or wheezing was noted. CARDIOVASCULAR: There is a regular rate and rhythm without any murmurs gallops or rubs. ABDOMEN: Soft and nontender with normal bowel sounds. SKIN: Skin is clear with no lesions or rashes and otherwise unremarkable. NEUROLOGIC: Patient is alert and oriented x3. Cranial nerves II through XII are grossly intact. Motor and sensory are also intact. Normal speech, volume and content. Symmetrical smile. MUSCULOSKELETAL: Normal extremities with adequate strength and full range of motion. No lower extremity swelling or edema. No calf tenderness. LYMPHATICS: No significant lymphadenopathy is noted PSYCHIATRIC: Normal psychiatric evaluation. Limitations: no limitations Course Vital Signs 06/03/24 06/03/24 11:38 11:56 Temperature 98.3 F Pulse Rate 73 Pulse Rate [ 73 Manager Assurance ] Respiratory 16 Rate Blood Pressure 111/74 O2 Sat by Pulse 97 Oximetry Medical Decision Making - Medical Decision Making EKG is interpreted by myself. EKG shows a sinus rhythm at 64 bpm. 154 QRS is 104 QT interval 386 QTc is 395. Patient's EKG shows no ST segment ovation or depression. Was pt. sent in by a medical professional or institution (, JOEL, SIMULATION DEVELOPER, urgent care, hospital, or longterm...) When possible be specific @ -No Did you speak to anyone other than the patient for history (EMS, parent, family, police, friend...)? What history was obtained from this source @ -No Did you review nursing and triage notes (agree or disagree)? Why? @ -I reviewed and agree with nursing and triage notes Were old charts reviewed (outside hosp., previous admission, EMS record, old EKG, old radiological studies, urgent care reports/EKG's, longterm records)? Report findings @ -No old charts were reviewed Differential Diagnosis? @ -Differential Chest Pain: Stable Angina, Unstable Angina, STEMI, NSTEMI Aortic Dissection, Pneumothorax, Musculoskeletal, Esophageal Spasm GERD, Cholecystitis, Pancreatitis, Zoster, this is not meant to be an all-inclusive list. EKG interpreted by me (3pts min.). @ -As above X-rays interpreted by me (1pt min.). @ -Chest x-ray shows no acute abnormality CT interpreted by me (1pt min.). @ -None done U/S interpreted by me (1pt. min.). @ -None done What testing was considered but not performed or refused? (CT, X-rays, U/S, labs)? Why? @ -None What meds were considered but not given or refused? Why? @ -None Did you discuss the management of the patient with other professionals (professionals i.e. , PA, SIMULATION DEVELOPER, lab, RT, psych nurse, executive secretary social welfare, regional director of finance, teacher, correction officer city or county jail, case resource manager)? Give summary @ -No Was smoking cessation discussed for >3mins.? @ -No Was critical care preformed (if so, how long)? @ -No Were there social determinants of health that impacted care today? How? (Homelessness, low income, unemployed, alcoholism, drug addiction, transportati on, low edu. Level, literacy, decrease access to med. care, alf, rehab)? @ -No Was there de-escalation of care discussed even if they declined (Discuss DNR or withdrawal of care, Hospice)? DNR status @ -No What co-morbidities impacted this encounter? (DM, HTN, Smoking, COPD, CAD, Cancer, CVA, ARF, Chemo, Hep., AIDS, mental health diagnosis, sleep apnea, morbid obesity)? @ -None Was patient admitted / discharged? Hospital course, mention meds given and route, prescriptions, significant lab abnormalities, going to OR and other pertinent info. @ -Patient is pain-free while in the emergency department. Patient will follow- up with his primary medical care doctor. Lab work is all normal chest x-ray is normal Undiagnosed new problem with uncertain prognosis? @ -No Drug Therapy requiring intensive monitoring for toxicity (Heparin, Nitro, Insulin, Cardizem)? @ -No Were any procedures done? @ -No Diagnosis/symptom? @ -Atypical chest pain Acute, or Chronic, or Acute on Chronic? @ -Acute Uncomplicated (without systemic symptoms) or Complicated (systemic symptoms)? @ -Complicated Side effects of treatment? @ -No Exacerbation, Progression, or Severe Exacerbation? @ -No Poses a threat to life or bodily function? How? (Chest pain, USA, VT, pneumonia, PE, COPD, DKA, ARF, appy, cholecystitis, CVA, Diverticulitis, Homicidal, Suicidal, threat to staff... and all critical care pts) @ -No - Lab Data Result diagrams: 06/03/24 12:16 06/03/24 12:16 Lab Results 06/03/24 06/03/24 06/03/24 Range/Units 12:16 12:16 12:16 WBC 9.6 (3.8-10.6) k/uL RBC 5.11 (4.30-5.90) m/uL Hgb 15.5 (13.0-17.5) gm/dL Hct 47.7 (39.0-53.0) % MCV 93.4 (80.0-100.0) fL MCH 30.4 (25.0-35.0) pg MCHC 32.6 (31.0-37.0) g/dL RDW 13.4 (11.5-15.5) % Plt Count 307 (150-450) k/uL MPV 8.5 Neutrophils % 64 % Lymphocytes % 27 % Monocytes % 4 % Eosinophils % 3 % Basophils % 1 % Neutrophils # 6.1 (1.3-7.7) k/uL Lymphocytes # 2.6 (1.0-4.8) k/uL Monocytes # 0.4 (0-1.0) k/uL Eosinophils # 0.3 (0-0.7) k/uL Basophils # 0.1 (0-0.2) k/uL D-Dimer 0.24 (<0.60) mg/L FEU Sodium 137 (137-145) mmol/L Potassium 4.3 (3.5-5.1) mmol/L Chloride 106 (98-107) mmol/L Carbon Dioxide 24 (22-30) mmol/L Anion Gap 7 mmol/L BUN 6 L (9-20) mg/dL Creatinine 0.79 (0.66-1.25) mg/dL Est GFR (CKD-EPI)AfAm >90 (>60 ml/min/1.73 sqM) Est GFR (CKD-EPI)NonAf >90 (>60 ml/min/1.73 sqM) Glucose 109 H (74-99) mg/dL Calcium 9.2 (8.4-10.2) mg/dL Magnesium 2.0 (1.6-2.3) mg/dL Total Bilirubin 0.5 (0.2-1.3) mg/dL AST 18 (17-59) U/L ALT 9 (4-49) U/L Alkaline Phosphatase 45 (38-126) U/L Troponin I (0.000-0.034) ng/mL Total Protein 7.2 (6.3-8.2) g/dL Albumin 4.6 (3.5-5.0) g/dL 06/03/24 Range/Units 12:16 WBC (3.8-10.6) k/uL RBC (4.30-5.90) m/uL Hgb (13.0-17.5) gm/dL Hct (39.0-53.0) % MCV (80.0-100.0) fL MCH (25.0-35.0) pg MCHC (31.0-37.0) g/dL RDW (11.5-15.5) % Plt Count (150-450) k/uL MPV Neutrophils % % Lymphocytes % % Monocytes % % Eosinophils % % Basophils % % Neutrophils # (1.3-7.7) k/uL Lymphocytes # (1.0-4.8) k/uL Monocytes # (0-1.0) k/uL Eosinophils # (0-0.7) k/uL Basophils # (0-0.2) k/uL D-Dimer (<0.60) mg/L FEU Sodium (137-145) mmol/L Potassium (3.5-5.1) mmol/L Chloride (98-107) mmol/L Carbon Dioxide (22-30) mmol/L Anion Gap mmol/L BUN (9-20) mg/dL Creatinine (0.66-1.25) mg/dL Est GFR (CKD-EPI)AfAm (>60 ml/min/1.73 sqM) Est GFR (CKD-EPI)NonAf (>60 ml/min/1.73 sqM) Glucose (74-99) mg/dL Calcium (8.4-10.2) mg/dL Magnesium (1.6-2.3) mg/dL Total Bilirubin (0.2-1.3) mg/dL AST (17-59) U/L ALT (4-49) U/L Alkaline Phosphatase (38-126) U/L Troponin I <0.012 (0.000-0.034) ng/mL Total Protein (6.3-8.2) g/dL Albumin (3.5-5.0) g/dL Disposition Clinical Impression: Atypical chest pain Disposition: HOME SELF-CARE Instructions (If sedation given, give patient instructions): Chest Pain (ED) Is patient prescribed a controlled substance at d/c from ED?: No Referrals: Hal Fofana DO [Primary Care Provider] - 1-2 days Time of Disposition: 14:23
[2024-06-03 12:42] LABS: ALT 9 U/L (4-49); AST 18 U/L (17-59); African American GFR (CKD) >90 (>60 ml/min/1.73 sqM); Albumin 4.6 g/dL (3.5-5.0); Alkaline Phosphatase 45 U/L (38-126); Anion Gap 7 mmol/L; Blood Urea Nitrogen 6 mg/dL (9-20); Calcium 9.2 mg/dL (8.4-10.2); Carbon Dioxide 24 mmol/L (22-30); Chloride 106 mmol/L (98-107); Glucose 109 mg/dL (74-99); Non-African American GFR(CKD) >90 (>60 ml/min/1.73 sqM); Potassium 4.3 mmol/L (3.5-5.1); Sodium 137 mmol/L (137-145); Total Bilirubin 0.5 mg/dL (0.2-1.3); Total Protein 7.2 g/dL (6.3-8.2)
[2024-06-03 12:51] LABS: Basophils # (A) 0.1 k/uL (0-0.2); Basophils % (A) 1 %; Eosinophils # (A) 0.3 k/uL (0-0.7); Eosinophils % (A) 3 %; HCT 47.7 % (39.0-53.0); HGB 15.5 gm/dL (13.0-17.5); Lymphocytes # (A) 2.6 k/uL (1.0-4.8); Lymphocytes % (A) 27 %; MCH 30.4 pg (25.0-35.0); MCHC 32.6 g/dL (31.0-37.0); MCV 93.4 fL (80.0-100.0); Mean Platelet Volume 8.5; Monocytes # (A) 0.4 k/uL (0-1.0); Monocytes % (A) 4 %; Neutrophils # (A) 6.1 k/uL (1.3-7.7); Neutrophils % (A) 64 %; Platelet Count 307 k/uL (150-450); RBC 5.11 m/uL (4.30-5.90); RDW 13.4 % (11.5-15.5); WBC 9.6 k/uL (3.8-10.6)
[2024-06-03 14:44] VITALS: BP 104/69; PULSE 63
--- NOTE | 2024-06-03 15:59 | XR ---
EXAMINATION TYPE: XR chest 2V DATE OF EXAM: 06/03/2024 COMPARISON: 08/02/2023 INDICATION: Chest pain TECHNIQUE: Frontal and lateral views of the chest are obtained. FINDINGS: The heart size is normal. The pulmonary vasculature is normal. The lungs are clear. IMPRESSION: 1. No acute pulmonary process.
== END 2024-06-03 14:39 | disposition home or self-care (01) ==
LOC: EC 11:33
DX: R07.89 Other chest pain (principal); F17.200 Nicotine dependence, unspecified, uncomplicated
CPT/HCPCS: 36415; 71046; 80053; 83735; 84484; 85025; 85379; 93005; 99285